=== PATIENT | male | born 1965 | race American Indian/Alaskan Native ===

== ENCOUNTER 2020-02-19 12:49 | Inpatient (IN) | payer OTHER, MEDICARE ==
[2020-02-19 14:44] LABS: Hematocrit 31.1 % (35.5-45.6); Hemoglobin 9.8 gm/dl (11.8-15.2); Mean Corpuscular HGB Conc 32 % (32-34); Platelet Count 310 K/mm3 (140-440); Red Blood Count 4.54 M/mm3 (3.65-5.03); Red Cell Distribution Width 18.2 % (13.2-15.2)
[2020-02-19 14:57] LABS: Mean Corpuscular Volume 69 fl (84-94)
[2020-02-19 15:00] LABS: BUN/Creatinine Ratio 21; Blood Urea Nitrogen 23 mg/dL (9-20); Calcium 9.8 mg/dL (8.4-10.2); Hemolysis Index 3
[2020-02-19] MEDS ORDERED: IPRATROPIUM/ALBUTEROL SULFATE 3 ML AMPUL.NEB IH ONE (15:03)
[2020-02-19] MEDS ORDERED: MAGNESIUM SULFATE 2 GM/50 ML BAG IV ONE (15:04)
[2020-02-19] MEDS ORDERED: methylPREDNISolone Sod Succinate 125 MG/2 ML INJ IV ONE (15:04)
--- NOTE | 2020-02-19 15:05 | XRay Report ---
XR chest routine 2V INDICATION / CLINICAL INFORMATION: History of COPD. Shortness of breath. COMPARISON: 11/21/2016. FINDINGS: SUPPORT DEVICES: None. HEART /PULMONARY VASCULATURE: The heart is prominent. No pulmonary vasculature congestion. LUNGS / PLEURA: No significant pulmonary or pleural abnormality. No pneumothorax. ADDITIONAL FINDINGS: No significant additional findings. IMPRESSION: No acute cardiopulmonary abnormality. Signer Name: Angel Sales MD Signed: 02/19/2020 3:01 PM Workstation Name: [id number]
--- NOTE | 2020-02-19 15:51 | Emergency Department Report ---
ED Shortness of Breath HPI - General Chief Complaint: Dyspnea/Respdistress Stated Complaint: JENISE Time Seen by Provider: 02/19/20 15:45 Source: EMS Mode of arrival: Wheelchair Limitations: No Limitations - History of Present Illness Initial Comments: Patient is 55-year-old male with history of hypertension and COPD. Patient presented to the ER complaining of shortness of breath and difficulty breathing for the last 3 days. Patient stated that he was not taking any medication at home for his shortness of breath. Patient denied any fever or chills. He denied any contact with patient with COVID-19. Patient also denied any chest pain, abdominal pain, nausea or vomiting. MD Complaint: shortness of breath, cough -: days(s) (3) - Related Data Home Medications Medication Instructions Recorded Confirmed Last Taken Dextroamphetamine/Amphetamine 10 mg PO BID 11/24/16 11/24/16 Unknown [Adderall 10 mg Tablet] Folic Acid [Folvite] 1 mg PO DAILY 11/24/16 11/24/16 Unknown NIFEdipine XL [Procardia Xl] 90 mg PO QDAY 11/24/16 11/24/16 Unknown Potassium Chloride 20 meq PO DAILY 11/24/16 11/24/16 Unknown traZODone [Desyrel] 100 mg PO QHS 11/24/16 11/24/16 Unknown Previous Rx's Medication Instructions Recorded Last Taken Type ALPRAZolam [Xanax TAB] 1 mg PO BID #14 tablet 11/29/16 Unknown Rx PARoxetine [Paxil] 10 mg PO DAILY #10 tablet 11/29/16 Unknown Rx oxyCODONE /ACETAMINOPHEN [Percocet 2 tab PO Q6H PRN #14 tablet 11/29/16 Unknown Rx 5/325 mg] Allergies Allergy/AdvReac Type Severity Reaction Status Date / Time No Known Allergies Allergy Verified 11/22/16 01:19 ED Review of Systems ROS: Stated complaint: JENISE Other details as noted in HPI Comment: All other systems reviewed and negative Constitutional: denies: chills, fever Respiratory: cough, orthopnea, shortness of breath, SOB with exertion, SOB at rest, wheezing Cardiovascular: denies: chest pain, palpitations Gastrointestinal: denies: abdominal pain, nausea, vomiting, diarrhea, constipation, hematemesis, hematochezia Musculoskeletal: denies: back pain Neurological: denies: headache, weakness, numbness, paresthesias, confusion ED Past Medical Hx - Past Medical History Hx Hypertension: Yes Hx Deep Vein Thrombosis: Yes Hx Arthritis: Yes (Rheumatoid) Hx COPD: Yes Additional medical history: intestinal blockage, blood clots in legs - Surgical History Additional Surgical History: Colon resection, IVC filter removed - Social History Smoking Status: Current Every Day Smoker Substance Use Type: None - Medications Home Medications: Home Medications Medication Instructions Recorded Confirmed Last Taken Type Dextroamphetamine/Amphetamine 10 mg PO BID 11/24/16 11/24/16 Unknown History [Adderall 10 mg Tablet] Folic Acid [Folvite] 1 mg PO DAILY 11/24/16 11/24/16 Unknown History NIFEdipine XL [Procardia Xl] 90 mg PO QDAY 11/24/16 11/24/16 Unknown History Potassium Chloride 20 meq PO DAILY 11/24/16 11/24/16 Unknown History traZODone [Desyrel] 100 mg PO QHS 11/24/16 11/24/16 Unknown History ALPRAZolam [Xanax TAB] 1 mg PO BID #14 tablet 11/29/16 Unknown Rx PARoxetine [Paxil] 10 mg PO DAILY #10 tablet 11/29/16 Unknown Rx oxyCODONE /ACETAMINOPHEN [Percocet 2 tab PO Q6H PRN #14 tablet 11/29/16 Unknown Rx 5/325 mg] ED Physical Exam - General Limitations: No Limitations General appearance: alert, in no apparent distress - Head Head exam: Present: atraumatic, normocephalic, normal inspection - Eye Eye exam: Present: normal appearance, PERRL - ENT ENT exam: Present: normal exam, normal orophraynx, mucous membranes moist - Neck Neck exam: Present: normal inspection, full ROM. Absent: tenderness, meningismus, lymphadenopathy, thyromegaly - Respiratory Respiratory exam: Present: wheezes, rhonchi. Absent: respiratory distress, rales, accessory muscle use, decreased breath sounds, prolonged expiratory - Cardiovascular Cardiovascular Exam: Present: regular rate, normal rhythm, normal heart sounds - GI/Abdominal GI/Abdominal exam: Present: soft, normal bowel sounds. Absent: distended, tenderness, guarding, rebound, rigid, organomegaly, mass, bruit, pulsatile mass, hernia - Extremities Exam Extremities exam: Present: normal inspection, full ROM, normal capillary refill. Absent: tenderness - Back Exam Back exam: Present: normal inspection, full ROM. Absent: CVA tenderness (R), CVA tenderness (L) - Neurological Exam Neurological exam: Present: alert, oriented X3, CN II-XII intact - Psychiatric Psychiatric exam: Present: normal mood - Skin Skin exam: Present: warm, intact, normal color ED Course Vital Signs 02/19/20 02/19/20 02/19/20 13:07 15:25 17:05 Temperature 97.9 F 99.1 F Pulse Rate 63 78 Pulse Rate [ 98 H Bilateral] Respiratory 18 16 Rate Respiratory 16 Rate [Bilateral ] Blood Pressure 110/74 Blood Pressure 135/96 [Right] O2 Sat by Pulse 100 97 Oximetry ED Medical Decision Making - Lab Data Result diagrams: 02/19/20 14:33 02/19/20 14:33 - EKG Data -: EKG Interpreted by Me EKG shows normal: sinus rhythm Rate: normal - EKG Data Interpretation: no acute changes - Radiology Data Radiology results: report reviewed - Medical Decision Making Patient is 55-year-old male with history of hypertension and COPD. Patient presented to the ER complaining of shortness of breath and difficulty breathing for the last 3 days. Patient stated that he was not taking any medication at h ome for his shortness of breath. Patient denied any fever or chills. He denied any contact with patient with COVID-19. Patient also denied any chest pain, abdominal pain, nausea or vomiting. Patient received albuterol, Atrovent and Solu-Medrol. CT chest showed groundglass appearance concerning for atypical pneumonia. COVID-19 test has been ordered. I discussed the patient with Dr. Luna, he agreed to admit the patient to medical service for further management. Critical care attestation.: If time is entered above; I have spent that time in minutes in the direct care of this critically ill patient, excluding procedure time. ED Disposition Clinical Impression: Suspected 2019-nCoV infection, COPD exacerbation Disposition: OP ADMIT IP TO THIS HOSP Is pt being admited?: Yes Condition: Stable Instructions: Chronic Obstructive Pulmonary Disease (ED)
--- NOTE | 2020-02-19 17:12 | Cat Scan Report ---
CT CHEST WITHOUT CONTRAST INDICATION / CLINICAL INFORMATION: SOB,COUGH, COVID-19. TECHNIQUE: Axial CT images were obtained through the chest without contrast. All CT scans at this location are p erformed using CT dose reduction for ALARA by means of automated exposure control. COMPARISON: Recent chest radiograph dated 02/19/2020. Prior CT abdomen and pelvis dated 11/21/2016. FINDINGS: HEART: No significant abnormality. THORACIC AORTA: Mild atherosclerotic calcification without acute abnormality. MEDIASTINUM and ROXANN: Mild reactive lymphadenopathy noted in the mediastinum. LUNGS: Mild scattered groundglass opacities noted in the bilateral lung bases and inferior aspect of the right upper lobe. PLEURA: No significant pleural effusion. No pneumothorax. ADDITIONAL FINDINGS: None. UPPER ABDOMEN: No acute findings of the upper abdomen. SKELETAL SYSTEM: Multilevel degenerative changes are noted of the spine. Exaggerated kyphosis is note d of the thoracic spine. No aggressive osseous lesions. IMPRESSION: 1. Mild scattered groundglass opacities noted in the bilateral lower lobes and inferior aspect of the right upper lobe with reactive mediastinal lymphadenopathy likely represents a developing atypical v ersus viral infectious process. Signer Name: Marco Antonio Sanchez MD Signed: 02/19/2020 5:07 PM Workstation Name: [id number]
--- NOTE | 2020-02-19 17:49 | History and Physical Report ---
History of Present Illness Chief complaint: I cannot breathe History of present illness: 55 YO Male with OA, HTN, COPD, DVT S/P IVC Filter Placement and subsequent removal not currently taking therapeutic anticoagulation, Nicotine Dependence presents to ED for evaluation. Patient states that he has experienced shortness of breath over the past 3 days with worsening symptoms over the same timeframe. Patient knowledges fatigue, malaise, subjective fever, decreased exercise tolerance, dry cough. EMS was notified and upon arrival the patient was found to be in distress and subsequently transported to [facility] for further care and evaluation of the aforementioned symptoms. Patient seen and evaluated in the emergency department. All lab and imaging studies reviewed. Patient found to have a pulse oximetry of 87% on room air with exertion which is consistent with acute hypoxemic respiratory failure. The patient underwent chest x-ray which revealed bilateral pneumonia. Patient admitted to medical floor and initiated on pneumonia protocol as well as coronavirus protocol. Patient placed on supplemental oxygen with improvement in pulse oximetry. Patient denies chills, chest pain, palpitations, skin rash, recent ill contacts, or known exposure to COVID-19. Prior admission on 11/24/2016 reviewed. All medication listed at time of admission has been reconciled. Past History Past Medical History: arthritis, COPD, DVT, hypertension, other (See HPI) Past Surgical History: bowel surgery, Other (IVC filter placement and removal) Social history: , smoking. denies: alcohol abuse, prescription drug abuse Family history: hypertension Medications and Allergies Allergies Allergy/AdvReac Type Severity Reaction Status Date / Time No Known Allergies Allergy Verified 11/22/16 01:19 Home Medications Medication Instructions Recorded Confirmed Last Taken Type Dextroamphetamine/Amphetamine 10 mg PO BID 11/24/16 11/24/16 Unknown History [Adderall 10 mg Tablet] Folic Acid [Folvite] 1 mg PO DAILY 11/24/16 11/24/16 Unknown History NIFEdipine XL [Procardia Xl] 90 mg PO QDAY 11/24/16 11/24/16 Unknown History Potassium Chloride 20 meq PO DAILY 11/24/16 11/24/16 Unknown History traZODone [Desyrel] 100 mg PO QHS 11/24/16 11/24/16 Unknown History ALPRAZolam [Xanax TAB] 1 mg PO BID #14 tablet 11/29/16 Unknown Rx PARoxetine [Paxil] 10 mg PO DAILY #10 tablet 11/29/16 Unknown Rx oxyCODONE /ACETAMINOPHEN [Percocet 2 tab PO Q6H PRN #14 tablet 11/29/16 Unknown Rx 5/325 mg] Review of Systems Constitutional: fever, fatigue, weakness, malaise Ears, nose, mouth and throat: ear pain, ear discharge, tinnitis, decreased hearing, nose pain Cardiovascular: chest pain, orthopnea, palpitations, rapid/irregular heart beat Respiratory: cough, shortness of breath, no excessive sputum, no wheezing, no pain Gastrointestinal: no nausea, no vomiting, no diarrhea, no constipation Genitourinary Male: no hematuria, no flank pain, no discharge, no urinary frequency, no urinary hesitancy Rectal: no pain, no incontinence, no bleeding Musculoskeletal: no neck stiffness, no neck pain, no arm numbness/tingling Integumentary: no rash, no pruritis, no redness, no sores, no wounds Neurological: no paralysis, no weakness, no parathesias, no numbness, no tingling Psychiatric: no anxiety, no memory loss, no sleep disturbances, no insomnia, no change in appetite Endocrine: no cold intolerance, no heat intolerance, no excessive thirst, no polydipsia, no polyuria, no excessive sweating Hematologic/Lymphatic: no easy bruising, no easy bleeding, no lymphedema Allergic/Immunologic: no urticaria, no allergic rhinitis, no anaphylaxis Exam - Constitutional Vitals: Temp Pulse Resp BP Pulse Ox 99.1 F 78 16 135/96 97 02/19/20 17:05 02/19/20 17:05 02/19/20 17:05 02/19/20 17:05 02/19/20 17:05 General appearance: Present: mild distress - EENT Eyes: Present: PERRL ENT: hearing intact, clear oral mucosa - Neck Neck: Present: supple, normal ROM - Respiratory Respiratory effort: labored, accessory muscle use Respiratory: bilateral: diminished - Cardiovascular Heart Sounds: Present: S1 & S2. Absent: rub, click - Extremities Extremities: pulses symmetrical, No edema Peripheral Pulses: within normal limits - Abdominal General gastrointestinal: Present: soft, non-tender, non-distended, normal bowel sounds Male genitourinary: Present: normal - Integumentary Integumentary: Present: clear, warm, dry - Musculoskeletal Musculoskeletal: gait normal, strength equal bilaterally - Psychiatric Psychiatric: appropriate mood/affect, intact judgment & insight - Neurologic Neurologic: CNII-XII intact, moves all extremities Results - Labs CBC & Chem 7: 02/19/20 14:33 02/19/20 18:00 Labs: Abnormal lab results 02/19/20 02/19/20 02/19/20 Range/Units 14:33 14:33 15:51 Hgb 9.8 L (11.8-15.2) gm/dl Hct 31.1 L (35.5-45.6) % MCV 69 L (84-94) fl MCH 22 L (28-32) pg RDW 18.2 H (13.2-15.2) % BUN 23 H (9-20) mg/dL NT-Pro-B Natriuret Pep 1162 H (0-900) pg/mL Assessment and Plan - Patient Problems (1) Acute hypoxemic respiratory failure Current Visit: Yes Status: Acute Plan to address problem: Supplemental oxygen, chest x-ray, nebulizer therapy, pulse oximetry, noninvasive positive pressure ventilation as clinically indicated, pulmonary toilet, prone positioning while in bed (2) Pneumonia Current Visit: Yes Status: Acute Plan to address problem: Pneumonia protocol: Chest x-ray, CBC, CMP, IV antibiotic therapy, nebulizer therapy, supplemental oxygen, blood culture. (3) Suspected 2019-nCoV infection Current Visit: Yes Status: Acute Plan to address problem: Coronavirus protocol: Contact precautions, isolation precautions, coronavirus PCR ordered and pending at time of admission, IV antibiotic therapy, IV steroid therapy, supplemental oxygen, pulse oximetry, pulmonary toilet. (4) COPD (chronic obstructive pulmonary disease) Current Visit: Yes Status: Acute Qualifiers: Chronic bronchitis type: unspecified Plan to address problem: Supplemental oxygen, steroid therapy, supportive care. (5) Nicotine dependence Current Visit: Yes Status: Acute Qualifiers: Nicotine product type: cigarettes Substance use status: in withdrawal Qualified Code(s): F17.213 - Nicotine dependence, cigarettes, with withdrawal Plan to address problem: Smoking cessation counseling, supportive care, behavior change counseling, +15 minutes. (6) DVT prophylaxis Current Visit: Yes Status: Acute Plan to address problem: SCD to bilateral lower extremities while in bed, prophylactic anticoagulation.
[2020-02-19] MEDS ORDERED: ONDANSETRON 4 MG/2 ML INJ IV PRN (17:55)
[2020-02-19] MEDS ORDERED: AZITHROMYCIN 500 MG in SODIUM CHLORIDE 0.9% 250ML 250 ML IV SCH (21:00)
[2020-02-19] MEDS: cefTRIAXone/NS 2 GM/100 ML 2 GM/100 ML BAG IV SCH (21:59)
[2020-02-19] MEDS ORDERED: DEXTROAMPHETAMINE PO SCH (22:00)
[2020-02-19] MEDS ORDERED: AMPHETAMINE PO SCH (22:00)
[2020-02-19] MEDS: ALBUTEROL 2.5 MG/3 ML NEBU IH PRN (22:09)
[2020-02-19] MEDS: HEPARIN 5,000 UNIT/1 ML VIAL SUB-Q SCH (22:40)
[2020-02-19] MEDS: ACETAMINOPHEN 325 MG TAB PO PRN (23:00)
[2020-02-19] MEDS: traZODone 100 MG TAB PO SCH (23:00)
[2020-02-19] MEDS: ALPRAZolam 1 MG TAB PO SCH (23:00)
[2020-02-19] MEDS: methylPREDNISolone Sod Succinate 40 MG/1 ML INJ IV SCH (23:00)
[2020-02-20] MEDS: ALBUTEROL 2.5 MG/3 ML NEBU IH PRN (04:14)
[2020-02-20] MEDS: oxyCODONE /ACETAMINOPHEN 5-325MG TAB PO PRN ×2 (04:33→13:47)
[2020-02-20] MEDS: methylPREDNISolone Sod Succinate 40 MG/1 ML INJ IV SCH ×3 (05:06→22:32)
[2020-02-20 06:41] LABS: Hematocrit 32.3 % (35.5-45.6); Hemoglobin 10.1 gm/dl (11.8-15.2); Mean Corpuscular HGB Conc 31 % (32-34); Mean Corpuscular Volume 70 fl (84-94); Platelet Count 295 K/mm3 (140-440); Red Blood Count 4.61 M/mm3 (3.65-5.03); Red Cell Distribution Width 18.4 % (13.2-15.2)
[2020-02-20 06:57] LABS: BUN/Creatinine Ratio 21; Blood Urea Nitrogen 23 mg/dL (9-20); Calcium 9.5 mg/dL (8.4-10.2); Hemolysis Index 8
--- NOTE | 2020-02-20 07:37 | Progress Note ---
Assessment and Plan Assessment and plan: (1) Acute hypoxemic respiratory failure Current Visit: Yes Status: Acute Plan to address problem: Supplemental oxygen, chest x-ray, nebulizer therapy, pulse oximetry, noninvasive positive pressure ventilation as clinically indicated, pulmonary toilet, prone positioning while in bed Echo is ordered and pending (2) Pneumonia Current Visit: Yes Status: Acute Plan to address problem: Pneumonia protocol: Chest x-ray, CBC, CMP, IV antibiotic therapy, nebulizer therapy, supplemental oxygen, blood culture. (3) Suspected 2019-nCoV infection Current Visit: Yes Status: Acute Plan to address problem: Coronavirus protocol: Contact precautions, isolation precautions, coronavirus PCR ordered and pending at time of admission, IV antibiotic therapy, IV steroid therapy, supplemental oxygen, pulse oximetry, pulmonary toilet. (4) COPD (chronic obstructive pulmonary disease) Current Visit: Yes Status: Acute Qualifiers: Chronic bronchitis type: unspecified Plan to address problem: Supplemental oxygen, steroid therapy, supportive care. (5) Nicotine dependence Current Visit: Yes Status: Acute Qualifiers: Nicotine product type: cigarettes Substance use status: in withdrawal Qualified Code(s): F17.213 - Nicotine dependence, cigarettes, with withdrawal Plan to address problem: Smoking cessation counseling, supportive care, behavior change counseling, +15 minutes. Hyperkalemia -Renal function is okay -I put the patient on Kayexalate, will monitor BMP (6) DVT prophylaxis Current Visit: Yes Status: Acute Plan to address problem: SCD to bilateral lower extremities while in bed, prophylactic anticoagulation. Patient was complaining a lot of cough and is on given Robitussin syrup. Patient is complaining generalized pain and he used to take methadone resumed it. History Interval history: Patient was seen and evaluated this morning Patient is coughing a lot, complains generalized pain Hospitalist Physical - Physical exam Narrative exam: Patient is on 2 L of oxygen The patient appeared well nourished and normally developed. Vital signs as documented. Head exam is unremarkable. No scleral icterus . Neck is without jugular venous distension, thyromegaly, or carotid bruits. Lungs are clear to auscultation. Cardiac exam reveals regular rate and Rhythm. Abdominal exam reveals normal bowel sounds, nontender, no organomegaly. Extremities are nonedematous and both femoral and pedal pulses are normal. [employer]: Alert and oriented 3. No focal weakness. - Constitutional Vitals: Temp Pulse Resp BP Pulse Ox 97.8 F 87 18 143/99 97 02/20/20 05:52 02/20/20 05:52 02/20/20 05:52 02/20/20 05:52 02/20/20 05:52 General appearance: Present: mild distress Results - Labs CBC & Chem 7: 02/20/20 04:57 02/20/20 04:57 Labs: Laboratory Last Values WBC 6.5 K/mm3 (4.5-11.0) 02/20/20 04:57 RBC 4.61 M/mm3 (3.65-5.03) 02/20/20 04:57 Hgb 10.1 gm/dl (11.8-15.2) L 02/20/20 04:57 Hct 32.3 % (35.5-45.6) L 02/20/20 04:57 MCV 70 fl (84-94) L 02/20/20 04:57 MCH 22 pg (28-32) L 02/20/20 04:57 MCHC 31 % (32-34) L 02/20/20 04:57 RDW 18.4 % (13.2-15.2) H 02/20/20 04:57 Plt Count 295 K/mm3 (140-440) 02/20/20 04:57 Seg Neutrophils % Client Onboarding Analyst 02/20/20 04:57 D-Dimer 317.92 ng/mlDDU (0-234) H 02/19/20 18:00 Sodium 136 mmol/L (137-145) L 02/20/20 04:57 Potassium 5.2 mmol/L (3.6-5.0) H 02/20/20 04:57 Chloride 102.9 mmol/L (98-107) 02/20/20 04:57 Carbon Dioxide 22 mmol/L (22-30) 02/20/20 04:57 Anion Gap 16 mmol/L 02/20/20 04:57 BUN 23 mg/dL (9-20) H 02/20/20 04:57 Creatinine 1.1 mg/dL (0.8-1.3) 02/20/20 04:57 Estimated GFR > 60 ml/min 02/20/20 04:57 BUN/Creatinine Ratio 21 % 02/20/20 04:57 Glucose 139 mg/dL (75-100) H 02/20/20 04:57 Calcium 9.5 mg/dL (8.4-10.2) 02/20/20 04:57 Ferritin 23.7 ng/mL (30.0-300.0) L 02/19/20 17:59 Lactate Dehydrogenase 194 units/L (91-180) H 02/19/20 18:00 C-Reactive Protein 3.00 mg/dL (0.00-1.30) H 02/19/20 18:00 NT-Pro-B Natriuret Pep 1162 pg/mL (0-900) H 02/19/20 15:51 Cheng/IV: Voiding Method Toilet IV Catheter Type [Left Forearm INT / Saline Lock ] Active Medications - Current Medications Current Medications: Generic Name Dose Route Start Last Admin Trade Name Freq PRN Reason Stop Dose Admin Acetaminophen 650 mg 02/19/20 17:55 02/19/20 23:00 Tylenol PO 650 mg Q4H PRN Administration Pain MILD(1-3)/Fever >100.5/PEREZ Albuterol 2.5 mg 02/19/20 17:55 02/20/20 04:14 Proventil IH 2.5 mg Q4HRT PRN Administration Shortness Of Breath Albuterol/Ipratropium 1 ampul 02/20/20 08:00 Duoneb *Not For Prn Use* IH TIDRT [facility] Alprazolam 1 mg 02/19/20 22:00 02/19/20 23:00 Xanax PO 1 mg BID ALEXANDRA Administration Azithromycin 500 mg 02/20/20 10:00 Zithromax PO 02/22/20 10:01 QDAY [facility] Folic Acid 1 mg 02/20/20 10:00 Folvite PO DAILY [facility] Heparin Sodium (Porcine) 5,000 unit 02/19/20 22:00 02/19/20 22:40 Heparin SUB-Q 5,000 unit Q12HR ALEXANDRA Administration Ceftriaxone Sodium 2 gm in 100 mls @ 200 mls/hr 02/19/20 20:00 02/19/20 21:59 Rocephin/Ns 2 Gm/100 Ml IV 02/22/20 19:59 200 mls/hr Q24HR ALEXANDRA Administration Protocol Methylprednisolone Sodium Succinate 40 mg 02/19/20 22:00 02/20/20 05:06 Solu-Medrol IV 40 mg Q8HR ALEXANDRA Administration Miscellaneous Medication 10 mg 02/19/20 22:00 Dextroamphetamine/Amphetamine [Adderall 10 Mg Tablet] PO BID [facility] Nifedipine 90 mg 02/20/20 10:00 Procardia Xl PO QDAY ALEXANDRA Ondansetron HCl 4 mg 02/19/20 17:55 Zofran IV Q8H PRN Nausea And Vomiting Oxycodone/Acetaminophen 2 tab 02/19/20 17:58 02/20/20 04:33 Percocet 5/325 PO 2 tab Q6H PRN Administration Pain, Moderate (4-6) Paroxetine HCl 10 mg 02/20/20 10:00 Paxil PO DAILY ALEXANDRA Sodium Chloride 10 ml 02/19/20 22:00 02/19/20 23:01 Sodium Chloride Flush Syringe 10 Ml IV 10 ml BID ALEXANDRA Administration Sodium Chloride 10 ml 02/19/20 17:55 02/20/20 05:07 Sodium Chloride Flush Syringe 10 Ml IV 10 ml PRN PRN Administration LINE FLUSH Sodium Polystyrene Sulfonate 30 gm 02/20/20 07:34 Kionex PO 02/20/20 07:35 ONCE ONE Trazodone HCl 100 mg 02/19/20 22:00 02/19/20 23:00 Desyrel PO 100 mg QHS ALEXANDRA Administration
[2020-02-20] MEDS: IPRATROPIUM/ALBUTEROL SULFATE 3 ML AMPUL.NEB IH SCH ×3 (07:59→19:26)
[2020-02-20] MEDS ORDERED: SODIUM POLYSTYRENE 15 GM/60 ML ORAL LIQD PO NR (08:00)
[2020-02-20] MEDS: ACETAMINOPHEN 325 MG TAB PO PRN (08:26)
[2020-02-20 08:50] LABS: Basophils % (Manual) 0 % (0.0-1.8); Eosinophils % (Manual) 0 % (0.0-4.3); Hypochromasia 1+; Monocytes % (Manual) 0 % (0.0-7.3); Total Cells Counted 100
[2020-02-20 08:51] LABS: Poikilocytosis Few; Schistocytes Few; Spherocytes Few
[2020-02-20 08:52] LABS: Platelet Estimate Consistent w Auto
[2020-02-20] MEDS: FOLIC ACID 1 MG TAB PO SCH (09:19)
[2020-02-20] MEDS: cefTRIAXone/NS 2 GM/100 ML 2 GM/100 ML BAG IV SCH (09:19)
[2020-02-20] MEDS: NIFEdipine XL 90 MG TAB PO SCH (09:20)
[2020-02-20] MEDS: HEPARIN 5,000 UNIT/1 ML VIAL SUB-Q SCH ×2 (09:20→22:32)
[2020-02-20] MEDS: ALPRAZolam 1 MG TAB PO SCH ×2 (09:20→22:32)
[2020-02-20] MEDS ORDERED: POTASSIUM CHLORIDE 20 MEQ PACKET PO SCH (10:00)
[2020-02-20] MEDS ORDERED: AZITHROMYCIN 250 MG TAB PO SCH (10:00)
[2020-02-20] MEDS: METHADONE 5 MG TAB PO SCH ×2 (11:49→17:17)
[2020-02-20] MEDS: guaiFENesin DM 200/20 MG ORAL LIQD 10 ML PO PRN ×2 (13:27→13:47)
[2020-02-20] MEDS: PARoxetine 10 MG TAB PO SCH (14:11)
[2020-02-20] MEDS: traZODone 100 MG TAB PO SCH (22:32)
[2020-02-21] MEDS: METHADONE 5 MG TAB PO SCH ×3 (01:38→17:51)
[2020-02-21] MEDS: ALBUTEROL 2.5 MG/3 ML NEBU IH PRN (04:34)
[2020-02-21 06:38] LABS: BUN/Creatinine Ratio 23; Blood Urea Nitrogen 21 mg/dL (9-20); Calcium 9.2 mg/dL (8.4-10.2); Hemolysis Index 0
[2020-02-21] MEDS: methylPREDNISolone Sod Succinate 40 MG/1 ML INJ IV SCH ×3 (07:19→22:00)
[2020-02-21] MEDS: oxyCODONE /ACETAMINOPHEN 5-325MG TAB PO PRN ×3 (07:20→22:01)
--- NOTE | 2020-02-21 07:54 | Progress Note ---
Assessment and Plan Assessment and plan: (1) Acute hypoxemic respiratory failure Current Visit: Yes Status: Acute Plan to address problem: Supplemental oxygen, chest x-ray, nebulizer therapy, pulse oximetry, noninvasive positive pressure ventilation as clinically indicated, pulmonary toilet Echo is ordered and pending (2) Pneumonia Current Visit: Yes Status: Acute Plan to address problem: Pneumonia protocol: Chest x-ray, CBC, CMP, IV antibiotic therapy, nebulizer therapy, supplemental oxygen, blood culture. (3) Suspected 2019-nCoV infection Current Visit: Yes Status: Acute Plan to address problem: Coronavirus protocol: Contact precautions, isolation precautions, coronavirus PCR ordered and pending at time of admission, IV antibiotic therapy, IV steroid therapy, supplemental oxygen, pulse oximetry, pulmonary toilet. (4) COPD (chronic obstructive pulmonary disease) Current Visit: Yes Status: Acute Qualifiers: Chronic bronchitis type: unspecified Plan to address problem: Supplemental oxygen, steroid therapy, supportive care. (5) Nicotine dependence Current Visit: Yes Status: Acute Qualifiers: Nicotine product type: cigarettes Substance use status: in withdrawal Qualified Code(s): F17.213 - Nicotine dependence, cigarettes, with withdrawal Plan to address problem: Smoking cessation counseling, supportive care, behavior change counseling, +15 minutes. Hyperkalemia -Renal function is okay -I put the patient on Kayexalate, will monitor BMP (6) DVT prophylaxis Current Visit: Yes Status: Acute Plan to address problem: SCD to bilateral lower extremities while in bed, prophylactic anticoagulation. Patient was complaining a lot of cough and is on given Robitussin syrup. Patient is complaining generalized pain and he used to take methadone resumed it. 02/21/2020 -Covid test was positive yesterday, patient is on dexamethasone -Procalcitonin level is negative and I will discontinue the IV antibiotic -Continue with oxygen supplement History Interval history: Patient was seen and evaluated this morning Patient is coughing a lot, complains generalized pain Hospitalist Physical - Physical exam Narrative exam: Patient is on 2 L of oxygen The patient appeared well nourished and normally developed. Vital signs as documented. Head exam is unremarkable. No scleral icterus . Neck is without jugular venous distension, thyromegaly, or carotid bruits. Lungs are clear to auscultation. Cardiac exam reveals regular rate and Rhythm. Abdominal exam reveals normal bowel sounds, nontender, no organomegaly. Extremities are nonedematous and both femoral and pedal pulses are normal. 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 No focal weakness. - Constitutional Vitals: Temp Pulse Resp BP Pulse Ox 98.4 F 82 18 138/85 96 02/21/20 05:12 02/21/20 05:12 02/21/20 05:12 02/21/20 05:12 02/21/20 05:12 General appearance: Present: mild distress Results - Labs CBC & Chem 7: 02/20/20 04:57 02/21/20 05:41 Labs: Laboratory Last Values WBC 6.5 K/mm3 (4.5-11.0) 02/20/20 04:57 RBC 4.61 M/mm3 (3.65-5.03) 02/20/20 04:57 Hgb 10.1 gm/dl (11.8-15.2) L 02/20/20 04:57 Hct 32.3 % (35.5-45.6) L 02/20/20 04:57 MCV 70 fl (84-94) L 02/20/20 04:57 MCH 22 pg (28-32) L 02/20/20 04:57 MCHC 31 % (32-34) L 02/20/20 04:57 RDW 18.4 % (13.2-15.2) H 02/20/20 04:57 Plt Count 295 K/mm3 (140-440) 02/20/20 04:57 Add Manual Diff Complete 02/20/20 04:57 Total Counted 100 02/20/20 04:57 Seg Neutrophils % Process Analyst 02/20/20 04:57 Seg Neuts % (Manual) 96.0 % (40.0-70.0) H 02/20/20 04:57 Band Neutrophils % 0 % 02/20/20 04:57 Lymphocytes % (Manual) 4.0 % (13.4-35.0) L 02/20/20 04:57 Reactive Lymphs % (Man) 0 % 02/20/20 04:57 Monocytes % (Manual) 0 % (0.0-7.3) 02/20/20 04:57 Eosinophils % (Manual) 0 % (0.0-4.3) 02/20/20 04:57 Basophils % (Manual) 0 % (0.0-1.8) 02/20/20 04:57 Metamyelocytes % 0 % 02/20/20 04:57 Myelocytes % 0 % 02/20/20 04:57 Promyelocytes % 0 % 02/20/20 04:57 Blast Cells % 0 % 02/20/20 04:57 Nucleated RBC % Not Reportable 02/20/20 04:57 Seg Neutrophils # Man 6.2 K/mm3 (1.8-7.7) 02/20/20 04:57 Band Neutrophils # 0.0 K/mm3 02/20/20 04:57 Lymphocytes # (Manual) 0.3 K/mm3 (1.2-5.4) L 02/20/20 04:57 Abs React Lymphs (Man) 0.0 K/mm3 02/20/20 04:57 Monocytes # (Manual) 0.0 K/mm3 (0.0-0.8) 02/20/20 04:57 Eosinophils # (Manual) 0.0 K/mm3 (0.0-0.4) 02/20/20 04:57 Basophils # (Manual) 0.0 K/mm3 (0.0-0.1) 02/20/20 04:57 Metamyelocytes # 0.0 K/mm3 02/20/20 04:57 Myelocytes # 0.0 K/mm3 02/20/20 04:57 Promyelocytes # 0.0 K/mm3 02/20/20 04:57 Blast Cells # 0.0 K/mm3 02/20/20 04:57 WBC Morphology Not Reportable 02/20/20 04:57 Hypersegmented Neuts Not Reportable 02/20/20 04:57 Hyposegmented Neuts Not Reportable 02/20/20 04:57 Hypogranular Neuts Not Reportable 02/20/20 04:57 Smudge Cells Not Reportable 02/20/20 04:57 Toxic Granulation Not Reportable 02/20/20 04:57 Toxic Vacuolation Not Reportable 02/20/20 04:57 Dohle Bodies Not Reportable 02/20/20 04:57 Pelger-Huet Anomaly Not Reportable 02/20/20 04:57 Reshma Rods Not Reportable 02/20/20 04:57 Platelet Estimate Consistent w auto 02/20/20 04:57 Clumped Platelets Not Reportable 02/20/20 04:57 Plt Clumps, EDTA Not Reportable 02/20/20 04:57 Large Platelets Not Reportable 02/20/20 04:57 Giant Platelets Not Reportable 02/20/20 04:57 Platelet Satelliting Not Reportable 02/20/20 04:57 Plt Morphology Comment Not Reportable 02/20/20 04:57 RBC Morphology Not Reportable 02/20/20 04:57 Dimorphic RBCs Not Reportable 02/20/20 04:57 Polychromasia Not Reportable 02/20/20 04:57 Hypochromasia 1+ 02/20/20 04:57 Poikilocytosis Few 02/20/20 04:57 Anisocytosis Not Reportable 02/20/20 04:57 Microcytosis Not Reportable 02/20/20 04:57 Macrocytosis Not Reportable 02/20/20 04:57 Spherocytes Few 02/20/20 04:57 Pappenheimer Bodies Not Reportable 02/20/20 04:57 Sickle Cells Not Reportable 02/20/20 04:57 Target Cells Not Reportable 02/20/20 04:57 Tear Drop Cells Not Reportable 02/20/20 04:57 Ovalocytes Not Reportable 02/20/20 04:57 Helmet Cells Not Reportable 02/20/20 04:57 Pfeiffer-[place] Bodies Not Reportable 02/20/20 04:57 [place] Rings Not Reportable 02/20/20 04:57 Christa Cells Not Reportable 02/20/20 04:57 Bite Cells Not Reportable 02/20/20 04:57 Crenated Cell Not Reportable 02/20/20 04:57 Elliptocytes Few 02/20/20 04:57 Acanthocytes (Spur) Not Reportable 02/20/20 04:57 Rouleaux Not Reportable 02/20/20 04:57 Hemoglobin C Crystals Not Reportable 02/20/20 04:57 Schistocytes Few 02/20/20 04:57 Malaria parasites Not Reportable 02/20/20 04:57 Ricky Bodies Not Reportable 02/20/20 04:57 Hem Pathologist Commnt No 02/20/20 04:57 D-Dimer 317.92 ng/mlDDU (0-234) H 02/19/20 18:00 Sodium 138 mmol/L (137-145) 02/21/20 05:41 Potassium 4.6 mmol/L (3.6-5.0) 02/21/20 05:41 Chloride 103.6 mmol/L (98-107) 02/21/20 05:41 Carbon Dioxide 26 mmol/L (22-30) 02/21/20 05:41 Anion Gap 13 mmol/L 02/21/20 05:41 BUN 21 mg/dL (9-20) H 02/21/20 05:41 Creatinine 0.9 mg/dL (0.8-1.3) 02/21/20 05:41 Estimated GFR > 60 ml/min 02/21/20 05:41 BUN/Creatinine Ratio 23 % 02/21/20 05:41 Glucose 136 mg/dL (75-100) H 02/21/20 05:41 Calcium 9.2 mg/dL (8.4-10.2) 02/21/20 05:41 Ferritin 23.7 ng/mL (30.0-300.0) L 02/19/20 17:59 Lactate Dehydrogenase 194 units/L (91-180) H 02/19/20 18:00 C-Reactive Protein 3.00 mg/dL (0.00-1.30) H 02/19/20 18:00 NT-Pro-B Natriuret Pep 1162 pg/mL (0-900) H 02/19/20 15:51 Procalcitonin < 0.05 ng/mL (<0.15) 02/19/20 18:00 Coronavirus (PCR) Positive (Negative) A 02/20/20 10:27 Cheng/IV: Voiding Method Toilet IV Catheter Type [Left Forearm INT / Saline Lock ] Active Medications - Current Medications Current Medications: Generic Name Dose Route Start Last Admin Trade Name Freq PRN Reason Stop Dose Admin Acetaminophen 650 mg 02/19/20 17:55 02/20/20 08:26 Tylenol PO 650 mg Q4H PRN Administration Pain MILD(1-3)/Fever >100.5/PEREZ Albuterol 2.5 mg 02/19/20 17:55 02/21/20 04:34 Proventil IH 2.5 mg Q4HRT PRN Administration Shortness Of Breath Albuterol/Ipratropium 1 ampul 02/20/20 08:00 02/20/20 19:26 Duoneb *Not For Prn Use* IH 1 ampul TIDRT ALEXANDRA Administration Alprazolam 1 mg 02/19/20 22:00 02/20/20 22:32 Xanax PO 1 mg BID ALEXANDRA Administration Azithromycin 500 mg 02/20/20 10:00 02/20/20 09:19 Zithromax PO 02/22/20 10:01 500 mg QDAY ALEXANDRA Administration Folic Acid 1 mg 02/20/20 10:00 02/20/20 09:19 Folvite PO 1 mg DAILY ALEXANDRA Administration Guaifenesin 20 ml 02/20/20 09:15 02/20/20 13:47 Guaifenesin Dm Syrup PO 20 ml Q4H PRN Administration Cough Heparin Sodium (Porcine) 5,000 unit 02/19/20 22:00 02/20/20 22:32 Heparin SUB-Q 5,000 unit Q12HR ALEXANDRA Administration Ceftriaxone Sodium 2 gm in 100 mls @ 200 mls/hr 02/19/20 20:00 02/20/20 09:19 Rocephin/Ns 2 Gm/100 Ml IV 02/22/20 19:59 200 mls/hr Q24HR ALEXANDRA Administration Protocol Methadone HCl 20 mg 02/20/20 10:00 02/21/20 01:38 Dolophine PO 20 mg Q8H ALEXANDRA Administration Methylprednisolone Sodium Succinate 40 mg 02/19/20 22:00 02/21/20 07:19 Solu-Medrol IV 40 mg Q8HR ALEXANDRA Administration Miscellaneous Medication 10 mg 02/19/20 22:00 Dextroamphetamine/Amphetamine [Adderall 10 Mg Tablet] PO BID ALEXANDRA Nifedipine 90 mg 02/20/20 10:00 02/20/20 09:20 Procardia Xl PO 90 mg QDAY ALEXANDRA Administration Ondansetron HCl 4 mg 02/19/20 17:55 Zofran IV Q8H PRN Nausea And Vomiting Oxycodone/Acetaminophen 2 tab 02/19/20 17:58 02/21/20 07:20 Percocet 5/325 PO 2 tab Q6H PRN Administration Pain, Moderate (4-6) Paroxetine HCl 10 mg 02/20/20 10:00 02/20/20 14:11 Paxil PO 10 mg DAILY ALEXANDRA Administration Sodium Chloride 10 ml 02/19/20 22:00 02/20/20 22:32 Sodium Chloride Flush Syringe 10 Ml IV 10 ml BID ALEXANDRA Administration Sodium Chloride 10 ml 02/19/20 17:55 02/21/20 07:21 Sodium Chloride Flush Syringe 10 Ml IV 10 ml PRN PRN Administration LINE FLUSH Trazodone HCl 100 mg 02/19/20 22:00 02/20/20 22:32 Desyrel PO 100 mg QHS ALEXANDRA Administration
[2020-02-21] MEDS: IPRATROPIUM/ALBUTEROL SULFATE 3 ML AMPUL.NEB IH SCH ×3 (09:05→19:24)
[2020-02-21] MEDS: PARoxetine 10 MG TAB PO SCH (09:52)
[2020-02-21] MEDS: FOLIC ACID 1 MG TAB PO SCH (09:52)
[2020-02-21] MEDS: HEPARIN 5,000 UNIT/1 ML VIAL SUB-Q SCH ×2 (09:52→22:01)
[2020-02-21] MEDS: NIFEdipine XL 90 MG TAB PO SCH (09:52)
[2020-02-21] MEDS: ALPRAZolam 1 MG TAB PO SCH ×2 (09:52→22:00)
[2020-02-21] MEDS: guaiFENesin DM 200/20 MG ORAL LIQD 10 ML PO PRN ×2 (13:15→17:51)
[2020-02-21] MEDS: MAGIC MOUTHWASH 30ML PO SCH ×2 (14:04→22:04)
[2020-02-21] MEDS: traZODone 100 MG TAB PO SCH (22:01)
[2020-02-22] MEDS: METHADONE 5 MG TAB PO SCH ×3 (01:37→18:21)
[2020-02-22] MEDS: methylPREDNISolone Sod Succinate 40 MG/1 ML INJ IV SCH ×3 (05:38→21:25)
[2020-02-22] MEDS: IPRATROPIUM/ALBUTEROL SULFATE 3 ML AMPUL.NEB IH SCH ×4 (07:45→19:11)
--- NOTE | 2020-02-22 08:36 | Progress Note ---
Assessment and Plan Assessment and plan: (1) Acute hypoxemic respiratory failure Current Visit: Yes Status: Acute Plan to address problem: Supplemental oxygen, chest x-ray, nebulizer therapy, pulse oximetry, noninvasive positive pressure ventilation as clinically indicated, pulmonary toilet Echo is ordered and pending (2) Pneumonia Current Visit: Yes Status: Acute Plan to address problem: Pneumonia protocol: Chest x-ray, CBC, CMP, IV antibiotic therapy, nebulizer therapy, supplemental oxygen, blood culture. (3) Suspected 2019-nCoV infection Current Visit: Yes Status: Acute Plan to address problem: Coronavirus protocol: Contact precautions, isolation precautions, coronavirus PCR ordered and pending at time of admission, IV antibiotic therapy, IV steroid therapy, supplemental oxygen, pulse oximetry, pulmonary toilet. (4) COPD (chronic obstructive pulmonary disease) Current Visit: Yes Status: Acute Qualifiers: Chronic bronchitis type: unspecified Plan to address problem: Supplemental oxygen, steroid therapy, supportive care. (5) Nicotine dependence Current Visit: Yes Status: Acute Qualifiers: Nicotine product type: cigarettes Substance use status: in withdrawal Qualified Code(s): F17.213 - Nicotine dependence, cigarettes, with withdrawal Plan to address problem: Smoking cessation counseling, supportive care, behavior change counseling, +15 minutes. Hyperkalemia -Renal function is okay -I put the patient on Kayexalate, will monitor BMP (6) DVT prophylaxis Current Visit: Yes Status: Acute Plan to address problem: SCD to bilateral lower extremities while in bed, prophylactic anticoagulation. Patient was complaining a lot of cough and is on given Robitussin syrup. Patient is complaining generalized pain and he used to take methadone resumed it. 02/21/2020 -Covid test was positive yesterday, patient is on dexamethasone -Procalcitonin level is negative and I will discontinue the IV antibiotic -Continue with oxygen supplement 02/22/2020 -Patient has Covid and is on dexamethasone -IV antibiotics discontinued because of low procalcitonin level -Patient is still requiring oxygen -Patient has elevated BNP and shortness of breath so we ordered echo but was not done. Give him a dose of IV Lasix. Disposition; can come discharged once echo is obtained. Need home O2 evaluation. History Interval history: Patient was seen and evaluated this morning Patient has some shortness of breath and on 2L of oxygen Hospitalist Physical - Physical exam Narrative exam: Patient is on 2 L of oxygen The patient appeared well nourished and normally developed. Vital signs as documented. Head exam is unremarkable. No scleral icterus . Neck is without jugular venous distension, thyromegaly, or carotid bruits. Lungs are clear to auscultation. Cardiac exam reveals regular rate and Rhythm. Abdominal exam reveals normal bowel sounds, nontender, no organomegaly. Extremities are nonedematous and both femoral and pedal pulses are normal. 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 No focal weakness. - Constitutional Vitals: Temp Pulse Resp BP Pulse Ox 97.9 F 69 20 136/93 92 02/22/20 06:32 02/22/20 06:32 02/22/20 06:32 02/22/20 06:32 02/22/20 06:32 General appearance: Present: mild distress Results - Labs CBC & Chem 7: 02/20/20 04:57 02/21/20 05:41 Labs: Laboratory Last Values WBC 6.5 K/mm3 (4.5-11.0) 02/20/20 04:57 RBC 4.61 M/mm3 (3.65-5.03) 02/20/20 04:57 Hgb 10.1 gm/dl (11.8-15.2) L 02/20/20 04:57 Hct 32.3 % (35.5-45.6) L 02/20/20 04:57 MCV 70 fl (84-94) L 02/20/20 04:57 MCH 22 pg (28-32) L 02/20/20 04:57 MCHC 31 % (32-34) L 02/20/20 04:57 RDW 18.4 % (13.2-15.2) H 02/20/20 04:57 Plt Count 295 K/mm3 (140-440) 02/20/20 04:57 Add Manual Diff Complete 02/20/20 04:57 Total Counted 100 02/20/20 04:57 Seg Neutrophils % Manager Assisted Living 02/20/20 04:57 Seg Neuts % (Manual) 96.0 % (40.0-70.0) H 02/20/20 04:57 Band Neutrophils % 0 % 02/20/20 04:57 Lymphocytes % (Manual) 4.0 % (13.4-35.0) L 02/20/20 04:57 Reactive Lymphs % (Man) 0 % 02/20/20 04:57 Monocytes % (Manual) 0 % (0.0-7.3) 02/20/20 04:57 Eosinophils % (Manual) 0 % (0.0-4.3) 02/20/20 04:57 Basophils % (Manual) 0 % (0.0-1.8) 02/20/20 04:57 Metamyelocytes % 0 % 02/20/20 04:57 Myelocytes % 0 % 02/20/20 04:57 Promyelocytes % 0 % 02/20/20 04:57 Blast Cells % 0 % 02/20/20 04:57 Nucleated RBC % Not Reportable 02/20/20 04:57 Seg Neutrophils # Man 6.2 K/mm3 (1.8-7.7) 02/20/20 04:57 Band Neutrophils # 0.0 K/mm3 02/20/20 04:57 Lymphocytes # (Manual) 0.3 K/mm3 (1.2-5.4) L 02/20/20 04:57 Abs React Lymphs (Man) 0.0 K/mm3 02/20/20 04:57 Monocytes # (Manual) 0.0 K/mm3 (0.0-0.8) 02/20/20 04:57 Eosinophils # (Manual) 0.0 K/mm3 (0.0-0.4) 02/20/20 04:57 Basophils # (Manual) 0.0 K/mm3 (0.0-0.1) 02/20/20 04:57 Metamyelocytes # 0.0 K/mm3 02/20/20 04:57 Myelocytes # 0.0 K/mm3 02/20/20 04:57 Promyelocytes # 0.0 K/mm3 02/20/20 04:57 Blast Cells # 0.0 K/mm3 02/20/20 04:57 WBC Morphology Not Reportable 02/20/20 04:57 Hypersegmented Neuts Not Reportable 02/20/20 04:57 Hyposegmented Neuts Not Reportable 02/20/20 04:57 Hypogranular Neuts Not Reportable 02/20/20 04:57 Smudge Cells Not Reportable 02/20/20 04:57 Toxic Granulation Not Reportable 02/20/20 04:57 Toxic Vacuolation Not Reportable 02/20/20 04:57 Dohle Bodies Not Reportable 02/20/20 04:57 Pelger-Huet Anomaly Not Reportable 02/20/20 04:57 Reshma Rods Not Reportable 02/20/20 04:57 Platelet Estimate Consistent w auto 02/20/20 04:57 Clumped Platelets Not Reportable 02/20/20 04:57 Plt Clumps, EDTA Not Reportable 02/20/20 04:57 Large Platelets Not Reportable 02/20/20 04:57 Giant Platelets Not Reportable 02/20/20 04:57 Platelet Satelliting Not Reportable 02/20/20 04:57 Plt Morphology Comment Not Reportable 02/20/20 04:57 RBC Morphology Not Reportable 02/20/20 04:57 Dimorphic RBCs Not Reportable 02/20/20 04:57 Polychromasia Not Reportable 02/20/20 04:57 Hypochromasia 1+ 02/20/20 04:57 Poikilocytosis Few 02/20/20 04:57 Anisocytosis Not Reportable 02/20/20 04:57 Microcytosis Not Reportable 02/20/20 04:57 Macrocytosis Not Reportable 02/20/20 04:57 Spherocytes Few 02/20/20 04:57 Pappenheimer Bodies Not Reportable 02/20/20 04:57 Sickle Cells Not Reportable 02/20/20 04:57 Target Cells Not Reportable 02/20/20 04:57 Tear Drop Cells Not Reportable 02/20/20 04:57 Ovalocytes Not Reportable 02/20/20 04:57 Helmet Cells Not Reportable 02/20/20 04:57 Pfeiffer-[place] Bodies Not Reportable 02/20/20 04:57 [place] Rings Not Reportable 02/20/20 04:57 Christa Cells Not Reportable 02/20/20 04:57 Bite Cells Not Reportable 02/20/20 04:57 Crenated Cell Not Reportable 02/20/20 04:57 Elliptocytes Few 02/20/20 04:57 Acanthocytes (Spur) Not Reportable 02/20/20 04:57 Rouleaux Not Reportable 02/20/20 04:57 Hemoglobin C Crystals Not Reportable 02/20/20 04:57 Schistocytes Few 02/20/20 04:57 Malaria parasites Not Reportable 02/20/20 04:57 Ricky Bodies Not Reportable 02/20/20 04:57 Hem Pathologist Commnt No 02/20/20 04:57 D-Dimer 317.92 ng/mlDDU (0-234) H 02/19/20 18:00 Sodium 138 mmol/L (137-145) 02/21/20 05:41 Potassium 4.6 mmol/L (3.6-5.0) 02/21/20 05:41 Chloride 103.6 mmol/L (98-107) 02/21/20 05:41 Carbon Dioxide 26 mmol/L (22-30) 02/21/20 05:41 Anion Gap 13 mmol/L 02/21/20 05:41 BUN 21 mg/dL (9-20) H 02/21/20 05:41 Creatinine 0.9 mg/dL (0.8-1.3) 02/21/20 05:41 Estimated GFR > 60 ml/min 02/21/20 05:41 BUN/Creatinine Ratio 23 % 02/21/20 05:41 Glucose 136 mg/dL (75-100) H 02/21/20 05:41 Calcium 9.2 mg/dL (8.4-10.2) 02/21/20 05:41 Ferritin 23.7 ng/mL (30.0-300.0) L 02/19/20 17:59 Lactate Dehydrogenase 194 units/L (91-180) H 02/19/20 18:00 C-Reactive Protein 3.00 mg/dL (0.00-1.30) H 02/19/20 18:00 NT-Pro-B Natriuret Pep 1162 pg/mL (0-900) H 02/19/20 15:51 Procalcitonin < 0.05 ng/mL (<0.15) 02/19/20 18:00 Coronavirus (PCR) Positive (Negative) A 02/20/20 10:27 Cheng/IV: Voiding Method Toilet IV Catheter Type [Left Forearm INT / Saline Lock ] Active Medications - Current Medications Current Medications: Generic Name Dose Route Start Last Admin Trade Name Freq PRN Reason Stop Dose Admin Acetaminophen 650 mg 02/19/20 17:55 02/20/20 08:26 Tylenol PO 650 mg Q4H PRN Administration Pain MILD(1-3)/Fever >100.5/PEREZ Albuterol 2.5 mg 02/19/20 17:55 02/21/20 04:34 Proventil IH 2.5 mg Q4HRT PRN Administration Shortness Of Breath Albuterol/Ipratropium 1 ampul 02/20/20 08:00 02/22/20 07:45 Duoneb *Not For Prn Use* IH 1 ampul TIDRT ALEXANDRA Administration Alprazolam 1 mg 02/19/20 22:00 02/21/20 22:00 Xanax PO 1 mg BID ALEXANDRA Administration Folic Acid 1 mg 02/20/20 10:00 02/21/20 09:52 Folvite PO 1 mg DAILY ALEXANDRA Administration Furosemide 40 mg 02/22/20 08:33 Lasix IV 02/22/20 08:34 ONCE ONE Guaifenesin 20 ml 02/20/20 09:15 02/21/20 17:51 Guaifenesin Dm Syrup PO 20 ml Q4H PRN Administration Cough Heparin Sodium (Porcine) 5,000 unit 02/19/20 22:00 02/21/20 22:01 Heparin SUB-Q 5,000 unit Q12HR ALEXANDRA Administration Lidocaine HCl 15 ml 02/21/20 14:00 02/21/20 22:04 Magic Mouthwash PO 15 ml TID ALEXANDRA Administration Methadone HCl 20 mg 02/20/20 10:00 02/22/20 01:37 Dolophine PO 20 mg Q8H ALEXANDRA Administration Methylprednisolone Sodium Succinate 40 mg 02/19/20 22:00 02/22/20 05:38 Solu-Medrol IV 40 mg Q8HR ALEXANDRA Administration Miscellaneous Medication 10 mg 02/19/20 22:00 Dextroamphetamine/Amphetamine [Adderall 10 Mg Tablet] PO BID ALEXANDRA Nifedipine 90 mg 02/20/20 10:00 02/21/20 09:52 Procardia Xl PO 90 mg QDAY ALEXANDRA Administration Ondansetron HCl 4 mg 02/19/20 17:55 Zofran IV Q8H PRN Nausea And Vomiting Oxycodone/Acetaminophen 2 tab 02/19/20 17:58 02/21/20 22:01 Percocet 5/325 PO 2 tab Q6H PRN Administration Pain, Moderate (4-6) Paroxetine HCl 10 mg 02/20/20 10:00 02/21/20 09:52 Paxil PO 10 mg DAILY ALEXANDRA Administration Sodium Chloride 10 ml 02/19/20 22:00 02/21/20 22:02 Sodium Chloride Flush Syringe 10 Ml IV 10 ml BID ALEXANDRA Administration Sodium Chloride 10 ml 02/19/20 17:55 02/22/20 05:38 Sodium Chloride Flush Syringe 10 Ml IV 10 ml PRN PRN Administration LINE FLUSH Trazodone HCl 100 mg 02/19/20 22:00 02/21/20 22:01 Desyrel PO 100 mg QHS ALEXANDRA Administration
[2020-02-22] MEDS: NIFEdipine XL 90 MG TAB PO SCH (09:44)
[2020-02-22] MEDS: FOLIC ACID 1 MG TAB PO SCH (09:44)
[2020-02-22] MEDS: ALPRAZolam 1 MG TAB PO SCH ×2 (09:44→21:25)
[2020-02-22] MEDS: PARoxetine 10 MG TAB PO SCH (09:44)
[2020-02-22] MEDS: MAGIC MOUTHWASH 30ML PO SCH ×3 (09:47→21:25)
[2020-02-22] MEDS ORDERED: FUROSEMIDE 40 MG/4 ML INJ IV ONE (10:00)
[2020-02-22] MEDS: HEPARIN 5,000 UNIT/1 ML VIAL SUB-Q SCH ×2 (11:24→21:26)
[2020-02-22] MEDS: oxyCODONE /ACETAMINOPHEN 5-325MG TAB PO PRN ×2 (11:24→21:26)
[2020-02-22] MEDS: traZODone 100 MG TAB PO SCH (21:26)
[2020-02-23] MEDS: METHADONE 5 MG TAB PO SCH ×2 (01:03→10:54)
[2020-02-23] MEDS: methylPREDNISolone Sod Succinate 40 MG/1 ML INJ IV SCH ×3 (05:25→22:34)
[2020-02-23 06:48] LABS: BUN/Creatinine Ratio 32; Blood Urea Nitrogen 35 mg/dL (9-20); Calcium 9.2 mg/dL (8.4-10.2); Hemolysis Index 6
[2020-02-23] MEDS: IPRATROPIUM/ALBUTEROL SULFATE 3 ML AMPUL.NEB IH SCH ×3 (07:48→20:12)
[2020-02-23] MEDS: MAGIC MOUTHWASH 30ML PO SCH ×3 (10:10→20:30)
[2020-02-23] MEDS: NIFEdipine XL 90 MG TAB PO SCH (10:11)
[2020-02-23] MEDS: FOLIC ACID 1 MG TAB PO SCH (10:11)
[2020-02-23] MEDS: HEPARIN 5,000 UNIT/1 ML VIAL SUB-Q SCH ×2 (10:11→22:35)
[2020-02-23] MEDS: PARoxetine 10 MG TAB PO SCH (10:12)
[2020-02-23] MEDS: ALPRAZolam 1 MG TAB PO SCH ×2 (10:12→22:35)
[2020-02-23] MEDS: oxyCODONE /ACETAMINOPHEN 5-325MG TAB PO PRN ×2 (13:36→22:48)
--- NOTE | 2020-02-23 14:22 | Consultation ---
History of Present Illness - Reason for Consult Consult date: 02/23/20 - History of Present Illness 55-year-old male past medical history arthritis, hypertension, COPD, DVT, nicotine dependence admitted to the hospital complaining of shortness of breath. He notes the symptoms began approximately 3 days prior to admission, and were progressively worsening. He also complains of associated fatigue, malaise, fevers. He was found to be hypoxic on presentation to the emergency room, and was admitted for COVID-19 rule out. Afebrile since admission with a normal white count. Currently on me thylprednisolone, no antibiotics. Covid testing positive. No cultures available for review. Imaging personally reviewed: Chest CT: Scattered groundglass opacities. Review of Systems: Bold if positive, otherwise negative General: fevers, chills, rigors HEENT: visual disturbance, diplopia, eye pain Respiratory: cough, sputum, hemoptysis, shortness of breath Cardiovascular: chest pain, syncope Gastrointestinal: nausea, vomiting, diarrhea, abdominal pain Genitourinary: dysuria, hematuria, flank pain Musculoskeletal: neck pain, back pain, joint pain, edema Neurologic: headaches, seizures Hematologic: easy bruising or bleeding Endocrine: night sweats, acute weight loss Skin: rash, jaundice, redness Psychiatric: suicidal, homicidal ideation Past History Past Medical History: arthritis, COPD, DVT, hypertension, other (See HPI) Past Surgical History: bowel surgery, Other (IVC filter placement and removal) Social history: , smoking. denies: alcohol abuse, prescription drug abuse Family history: hypertension Medications and Allergies Allergies Allergy/AdvReac Type Severity Reaction Status Date / Time No Known Allergies Allergy Verified 11/22/16 01:19 Home Medications Medication Instructions Recorded Confirmed Last Taken Type Dextroamphetamine/Amphetamine 10 mg PO BID 11/24/16 11/24/16 Unknown History [Adderall 10 mg Tablet] Folic Acid [Folvite] 1 mg PO DAILY 11/24/16 11/24/16 Unknown History NIFEdipine XL [Procardia Xl] 90 mg PO QDAY 11/24/16 11/24/16 Unknown History Potassium Chloride 20 meq PO DAILY 11/24/16 11/24/16 Unknown History traZODone [Desyrel] 100 mg PO QHS 11/24/16 11/24/16 Unknown History ALPRAZolam [Xanax TAB] 1 mg PO BID #14 tablet 11/29/16 Unknown Rx PARoxetine [Paxil] 10 mg PO DAILY #10 tablet 11/29/16 Unknown Rx oxyCODONE /ACETAMINOPHEN [Percocet 2 tab PO Q6H PRN #14 tablet 11/29/16 Unknown Rx 5/325 mg] Active Meds: Active Medications Acetaminophen (Tylenol) 650 mg PO Q4H PRN PRN Reason: Pain MILD(1-3)/Fever >100.5/PEREZ Last Admin: 02/20/20 08:26 Dose: 650 mg Documented by: Albuterol (Proventil) 2.5 mg IH Q4HRT PRN PRN Reason: Shortness Of Breath Last Admin: 02/21/20 04:34 Dose: 2.5 mg Documented by: Albuterol/Ipratropium (Duoneb *Not For Prn Use*) 1 ampul IH TIDRT [facility] Last Admin: 02/23/20 07:48 Dose: 1 ampul Documented by: Alprazolam (Xanax) 1 mg PO BID [facility] Last Admin: 02/23/20 10:12 Dose: 1 mg Documented by: Folic Acid (Folvite) 1 mg PO DAILY [facility] Last Admin: 02/23/20 10:11 Dose: 1 mg Documented by: Guaifenesin (Guaifenesin Dm Syrup) 20 ml PO Q4H PRN PRN Reason: Cough Last Admin: 02/21/20 17:51 Dose: 20 ml Documented by: Heparin Sodium (Porcine) (Heparin) 5,000 unit SUB-Q Q12HR [facility] Last Admin: 02/23/20 10:11 Dose: 5,000 unit Documented by: Lidocaine HCl (Magic Mouthwash) 15 ml PO TID [facility] Last Admin: 02/23/20 13:36 Dose: 15 ml Documented by: Methadone HCl (Dolophine) 20 mg PO Q8H [facility] Last Admin: 02/23/20 10:54 Dose: 20 mg Documented by: Methylprednisolone Sodium Succinate (Solu-Medrol) 40 mg IV Q8HR [facility] Last Admin: 02/23/20 13:36 Dose: 40 mg Documented by: Miscellaneous Medication (Dextroamphetamine/Amphetamine [Adderall 10 Mg Tablet]) 10 mg PO BID [facility] Nifedipine (Procardia Xl) 90 mg PO QDAY [facility] Last Admin: 02/23/20 10:11 Dose: 90 mg Documented by: Ondansetron HCl (Zofran) 4 mg IV Q8H PRN PRN Reason: Nausea And Vomiting Oxycodone/Acetaminophen (Percocet 5/325) 2 tab PO Q6H PRN PRN Reason: Pain, Moderate (4-6) Last Admin: 02/23/20 13:36 Dose: 2 tab Documented by: Paroxetine HCl (Paxil) 10 mg PO DAILY [facility] Last Admin: 02/23/20 10:12 Dose: 10 mg Documented by: Sodium Chloride (Sodium Chloride Flush Syringe 10 Ml) 10 ml IV BID [facility] Last Admin: 02/23/20 10:12 Dose: 10 ml Documented by: Sodium Chloride (Sodium Chloride Flush Syringe 10 Ml) 10 ml IV PRN PRN PRN Reason: LINE FLUSH Last Admin: 02/22/20 05:38 Dose: 10 ml Documented by: Trazodone HCl (Desyrel) 100 mg PO QHS [facility] Last Admin: 02/22/20 21:26 Dose: 100 mg Documented by: Physical Examination - Physical Exam Narrative exam: Physical exam deferred due to PPE conservation strategy. Please refer to primary team's note. - Constitutional Vitals: Vital Signs Temp Pulse Resp BP Pulse Ox 98.3 F 74 16 136/96 99 02/23/20 05:00 02/23/20 08:00 02/23/20 08:00 02/23/20 05:00 02/23/20 08:41 Temperature -Last 24 Hours Temperature 98.3 F Temperature 98.1 F Temperature 97.3 F Results - Labs CBC & Chem 7: 02/20/20 04:57 02/23/20 05:15 Labs: Abnormal lab results 02/23/20 Range/Units 05:15 BUN 35 H (9-20) mg/dL Glucose 108 H (75-100) mg/dL Assessment and Plan Cultures: Blood culture Urine culture Sputum culture Wound culture A/P: 55-year-old male past medical history arthritis, hypertension, COPD, DVT, nicotine dependence admitted with COVID-19 pneumonia #COVID-19 pneumonia: Candidate for remdesivir, would start. #Acute hypoxemic respiratory failure: Likely secondary to COVID-19 infection. Currently on 2 L nasal cannula #COPD: Currently receiving steroids #History of DVT: Anticoagulation Recs: -Continue steroids for 10 days. -Start Remdesivir 200 mg IV q day x 1 followed by 100 mg IV q day x 4 days. Monitor renal and hepatic function while receiving -Does not need to stay for full course if improving, can discharge prior to completing 5 days. -Obtain daily inflammatory markers - ferritin, Ddimer, CRP, LDH -Proning as able -Anticoagulation per hospital protocol Thank you for the consult, we will continue to follow. Mello Boyd MD [facility] ([facility] O: [phone] F: [phone]
--- NOTE | 2020-02-23 17:49 | Progress Note ---
Assessment and Plan Assessment and plan: -- Acute hypoxemic respiratory failure Current Visit: Yes Status: Acute Plan to address problem: Oxygen titrate O2 sats to more than 90% BiPAP as needed --COVID 19+ patient/pneumonia Current Visit: Yes Status: Acute Plan to address problem: Continue current management per protocol Continue steroids for total 10 days. Consider remdesivir 200 mg IV q day x 1 followed by 100 mg IV q day x 4 days. Follow inflammatory markers - ferritin, Ddimer, CRP, LDH Proning position if patient is able to maintain Anticoagulation per protocols --COPD (chronic obstructive pulmonary disease) Current Visit: Yes Status: Acute Plan to address problem: Supplemental oxygen, steroid therapy, supportive care. --Nicotine dependence Current Visit: Yes Status: Acute wal Plan to address problem: Smoking cessation counseling, supportive care, behavior change counseling, +15 minutes. Hyperkalemia -Renal function is okay -I put the patient on Kayexalate, will monitor BMP --DVT prophylaxis Current Visit: Yes Status: Acute Plan to address problem: SCD to bilateral lower extremities while in bed, prophylactic anticoagulation. Patient was complaining a lot of cough and is on given Robitussin syrup. Patient is complaining generalized pain and he used to take methadone resumed it. 02/21/2020 -Covid test was positive yesterday, patient is on dexamethasone -Procalcitonin level is negative and I will discontinue the IV antibiotic -Continue with oxygen supplement 02/22/2020 -Patient has Covid and is on dexamethasone -IV antibiotics discontinued because of low procalcitonin level -Patient is still requiring oxygen -Patient has elevated BNP and shortness of breath so we ordered echo but was not done. Give him a dose of IV Lasix. 02/23/2020; Continue current management Patient has history of ADHD, request to resume Adderall/Ritalin Follow inflammatory markers Continue isolation precautions 02/24/2020; ID recommendations noted and appreciated Continue steroids and remdesivir Adderall is not available in the pharmacy, will DC History Interval history: I have seen and examined the patient at the bedside Patient's chart and medications reviewed Isolation precautions and PPE protocols strictly followed Patient complains of some cough and congestion Vital signs noted Hospitalist Physical - Constitutional Vitals: Temp Pulse Resp BP Pulse Ox 98.3 F 74 16 136/96 99 02/23/20 05:00 02/23/20 08:00 02/23/20 08:00 02/23/20 05:00 02/23/20 08:41 General appearance: Present: mild distress, well-nourished - EENT Eyes: Present: PERRL, EOM intact - Neck Neck: Present: supple, normal ROM - Respiratory Respiratory effort: normal Respiratory: bilateral: diminished, rhonchi, negative: rales, wheezing - Cardiovascular Rhythm: regular Heart Sounds: Present: S1 & S2 - Extremities Extremities: no ischemia, No edema - Abdominal General gastrointestinal: soft, non-tender, non-distended, normal bowel sounds - Integumentary Integumentary: Present: clear, warm - Psychiatric Psychiatric: appropriate mood/affect, cooperative - Neurologic Neurologic: CNII-XII intact, moves all extremities Results - Labs CBC & Chem 7: 02/20/20 04:57 02/23/20 05:15 Labs: Laboratory Last Values WBC 6.5 K/mm3 (4.5-11.0) 02/20/20 04:57 RBC 4.61 M/mm3 (3.65-5.03) 02/20/20 04:57 Hgb 10.1 gm/dl (11.8-15.2) L 02/20/20 04:57 Hct 32.3 % (35.5-45.6) L 02/20/20 04:57 MCV 70 fl (84-94) L 02/20/20 04:57 MCH 22 pg (28-32) L 02/20/20 04:57 MCHC 31 % (32-34) L 02/20/20 04:57 RDW 18.4 % (13.2-15.2) H 02/20/20 04:57 Plt Count 295 K/mm3 (140-440) 02/20/20 04:57 Add Manual Diff Complete 02/20/20 04:57 Total Counted 100 02/20/20 04:57 Seg Neutrophils % Brand Strategy Manager 02/20/20 04:57 Seg Neuts % (Manual) 96.0 % (40.0-70.0) H 02/20/20 04:57 Band Neutrophils % 0 % 02/20/20 04:57 Lymphocytes % (Manual) 4.0 % (13.4-35.0) L 02/20/20 04:57 Reactive Lymphs % (Man) 0 % 02/20/20 04:57 Monocytes % (Manual) 0 % (0.0-7.3) 02/20/20 04:57 Eosinophils % (Manual) 0 % (0.0-4.3) 02/20/20 04:57 Basophils % (Manual) 0 % (0.0-1.8) 02/20/20 04:57 Metamyelocytes % 0 % 02/20/20 04:57 Myelocytes % 0 % 02/20/20 04:57 Promyelocytes % 0 % 02/20/20 04:57 Blast Cells % 0 % 02/20/20 04:57 Nucleated RBC % Not Reportable 02/20/20 04:57 Seg Neutrophils # Man 6.2 K/mm3 (1.8-7.7) 02/20/20 04:57 Band Neutrophils # 0.0 K/mm3 02/20/20 04:57 Lymphocytes # (Manual) 0.3 K/mm3 (1.2-5.4) L 02/20/20 04:57 Abs React Lymphs (Man) 0.0 K/mm3 02/20/20 04:57 Monocytes # (Manual) 0.0 K/mm3 (0.0-0.8) 02/20/20 04:57 Eosinophils # (Manual) 0.0 K/mm3 (0.0-0.4) 02/20/20 04:57 Basophils # (Manual) 0.0 K/mm3 (0.0-0.1) 02/20/20 04:57 Metamyelocytes # 0.0 K/mm3 02/20/20 04:57 Myelocytes # 0.0 K/mm3 02/20/20 04:57 Promyelocytes # 0.0 K/mm3 02/20/20 04:57 Blast Cells # 0.0 K/mm3 02/20/20 04:57 WBC Morphology Not Reportable 02/20/20 04:57 Hypersegmented Neuts Not Reportable 02/20/20 04:57 Hyposegmented Neuts Not Reportable 02/20/20 04:57 Hypogranular Neuts Not Reportable 02/20/20 04:57 Smudge Cells Not Reportable 02/20/20 04:57 Toxic Granulation Not Reportable 02/20/20 04:57 Toxic Vacuolation Not Reportable 02/20/20 04:57 Dohle Bodies Not Reportable 02/20/20 04:57 Pelger-Huet Anomaly Not Reportable 02/20/20 04:57 Reshma Rods Not Reportable 02/20/20 04:57 Platelet Estimate Consistent w auto 02/20/20 04:57 Clumped Platelets Not Reportable 02/20/20 04:57 Plt Clumps, EDTA Not Reportable 02/20/20 04:57 Large Platelets Not Reportable 02/20/20 04:57 Giant Platelets Not Reportable 02/20/20 04:57 Platelet Satelliting Not Reportable 02/20/20 04:57 Plt Morphology Comment Not Reportable 02/20/20 04:57 RBC Morphology Not Reportable 02/20/20 04:57 Dimorphic RBCs Not Reportable 02/20/20 04:57 Polychromasia Not Reportable 02/20/20 04:57 Hypochromasia 1+ 02/20/20 04:57 Poikilocytosis Few 02/20/20 04:57 Anisocytosis Not Reportable 02/20/20 04:57 Microcytosis Not Reportable 02/20/20 04:57 Macrocytosis Not Reportable 02/20/20 04:57 Spherocytes Few 02/20/20 04:57 Pappenheimer Bodies Not Reportable 02/20/20 04:57 Sickle Cells Not Reportable 02/20/20 04:57 Target Cells Not Reportable 02/20/20 04:57 Tear Drop Cells Not Reportable 02/20/20 04:57 Ovalocytes Not Reportable 02/20/20 04:57 Helmet Cells Not Reportable 02/20/20 04:57 [place] Bodies Not Reportable 02/20/20 04:57 [place] Rings Not Reportable 02/20/20 04:57 Christa Cells Not Reportable 02/20/20 04:57 Bite Cells Not Reportable 02/20/20 04:57 Crenated Cell Not Reportable 02/20/20 04:57 Elliptocytes Few 02/20/20 04:57 Acanthocytes (Spur) Not Reportable 02/20/20 04:57 Rouleaux Not Reportable 02/20/20 04:57 Hemoglobin C Crystals Not Reportable 02/20/20 04:57 Schistocytes Few 02/20/20 04:57 Malaria parasites Not Reportable 02/20/20 04:57 Ricky Bodies Not Reportable 02/20/20 04:57 Hem Pathologist Commnt No 02/20/20 04:57 D-Dimer 317.92 ng/mlDDU (0-234) H 02/19/20 18:00 Sodium 139 mmol/L (137-145) 02/23/20 05:15 Potassium 4.7 mmol/L (3.6-5.0) 02/23/20 05:15 Chloride 102.2 mmol/L (98-107) 02/23/20 05:15 Carbon Dioxide 25 mmol/L (22-30) 02/23/20 05:15 Anion Gap 17 mmol/L 02/23/20 05:15 BUN 35 mg/dL (9-20) H 02/23/20 05:15 Creatinine 1.1 mg/dL (0.8-1.3) 02/23/20 05:15 Estimated GFR > 60 ml/min 02/23/20 05:15 BUN/Creatinine Ratio 32 % 02/23/20 05:15 Glucose 108 mg/dL (75-100) H 02/23/20 05:15 Calcium 9.2 mg/dL (8.4-10.2) 02/23/20 05:15 Ferritin 23.7 ng/mL (30.0-300.0) L 02/19/20 17:59 Lactate Dehydrogenase 194 units/L (91-180) H 02/19/20 18:00 C-Reactive Protein 3.00 mg/dL (0.00-1.30) H 02/19/20 18:00 NT-Pro-B Natriuret Pep 1162 pg/mL (0-900) H 02/19/20 15:51 Procalcitonin < 0.05 ng/mL (<0.15) 02/19/20 18:00 Coronavirus (PCR) Positive (Negative) A 02/20/20 10:27 Cheng/IV: Voiding Method Urinal IV Catheter Type [Left Forearm INT / Saline Lock ] Active Medications - Current Medications Current Medications: Generic Name Dose Route Start Last Admin Trade Name Freq PRN Reason Stop Dose Admin Acetaminophen 650 mg 02/19/20 17:55 02/20/20 08:26 Tylenol PO 650 mg Q4H PRN Administration Pain MILD(1-3)/Fever >100.5/PEREZ Albuterol 2.5 mg 02/19/20 17:55 02/21/20 04:34 Proventil IH 2.5 mg Q4HRT PRN Administration Shortness Of Breath Albuterol/Ipratropium 1 ampul 02/20/20 08:00 02/23/20 14:35 Duoneb *Not For Prn Use* IH 1 ampul TIDRT ALEXANDRA Administration Alprazolam 1 mg 02/19/20 22:00 02/23/20 10:12 Xanax PO 1 mg BID ALEXANDRA Administration Folic Acid 1 mg 02/20/20 10:00 02/23/20 10:11 Folvite PO 1 mg DAILY ALEXANDRA Administration Guaifenesin 20 ml 02/20/20 09:15 02/21/20 17:51 Guaifenesin Dm Syrup PO 20 ml Q4H PRN Administration Cough Heparin Sodium (Porcine) 5,000 unit 02/19/20 22:00 02/23/20 10:11 Heparin SUB-Q 5,000 unit Q12HR ALEXANDRA Administration Lidocaine HCl 15 ml 02/21/20 14:00 02/23/20 13:36 Magic Mouthwash PO 15 ml TID ALEXANDRA Administration Methadone HCl 20 mg 02/20/20 10:00 02/23/20 10:54 Dolophine PO 20 mg Q8H ALEXANDRA Administration Methylprednisolone Sodium Succinate 40 mg 02/19/20 22:00 02/23/20 13:36 Solu-Medrol IV 40 mg Q8HR ALEXANDRA Administration Miscellaneous Medication 10 mg 02/19/20 22:00 Dextroamphetamine/Amphetamine [Adderall 10 Mg Tablet] PO BID ALEXANDRA Nifedipine 90 mg 02/20/20 10:00 02/23/20 10:11 Procardia Xl PO 90 mg QDAY ALEXANDRA Administration Ondansetron HCl 4 mg 02/19/20 17:55 Zofran IV Q8H PRN Nausea And Vomiting Oxycodone/Acetaminophen 2 tab 02/19/20 17:58 02/23/20 13:36 Percocet 5/325 PO 2 tab Q6H PRN Administration Pain, Moderate (4-6) Paroxetine HCl 10 mg 02/20/20 10:00 02/23/20 10:12 Paxil PO 10 mg DAILY ALEXANDRA Administration Sodium Chloride 10 ml 02/19/20 22:00 02/23/20 10:12 Sodium Chloride Flush Syringe 10 Ml IV 10 ml BID ALEXANDRA Administration Sodium Chloride 10 ml 02/19/20 17:55 02/22/20 05:38 Sodium Chloride Flush Syringe 10 Ml IV 10 ml PRN PRN Administration LINE FLUSH Trazodone HCl 100 mg 02/19/20 22:00 02/22/20 21:26 Desyrel PO 100 mg QHS ALEXANDRA Administration
[2020-02-23] MEDS: traZODone 100 MG TAB PO SCH (22:35)
[2020-02-24] MEDS: METHADONE 5 MG TAB PO SCH ×3 (02:49→19:26)
[2020-02-24] MEDS: methylPREDNISolone Sod Succinate 40 MG/1 ML INJ IV SCH ×3 (05:44→21:20)
[2020-02-24] MEDS: ARFORMOTEROL 15 MCG/2 ML NEBU IH SCH ×2 (07:32→21:28)
[2020-02-24] MEDS: BUDESONIDE 0.5 MG/2 ML NEBU IH SCH ×2 (07:32→21:28)
--- NOTE | 2020-02-24 09:22 | Progress Note ---
Assessment and Plan Assessment and plan: -- Acute hypoxemic respiratory failure Current Visit: Yes Status: Acute Plan to address problem: Continue nasal cannula oxygen, titrate O2 sats to more than 90% Evaluation for home oxygen at discharge --COVID-19 pneumonia Current Visit: Yes Status: Acute Plan to address problem: Pneumonia protocol: Chest x-ray, CBC, CMP, IV antibiotic therapy, nebulizer therapy, supplemental oxygen, blood culture. --COVID 19+ patient Current Visit: Yes Status: Acute Plan to address problem: Continue current management per protocol Continue steroids for total 10 days. ID started Remdesivir 200 mg IV q day x 1 followed by 100 mg IV q day x 4 days. We will monitor renal and hepatic function while receiving Does not need to stay for full course if improving, can discharge prior to completing 5 days. Follow inflammatory markers - ferritin, Ddimer, CRP, LDH Proning position if patient is able to maintain Anticoagulation per protocols --COPD (chronic obstructive pulmonary disease) Current Visit: Yes Status: Acute Plan to address problem: Supplemental oxygen, steroid therapy, supportive care. --Nicotine dependence Current Visit: Yes Status: Acute wal Plan to address problem: Smoking cessation counseling, supportive care, behavior change counseling, +15 minutes. Hyperkalemia -Renal function is okay -I put the patient on Kayexalate, will monitor BMP --DVT prophylaxis Current Visit: Yes Status: Acute Plan to address problem: SCD to bilateral lower extremities while in bed, prophylactic anticoagulation. Patient was complaining a lot of cough and is on given Robitussin syrup. Patient is complaining generalized pain and he used to take methadone resumed it. 02/21/2020 -Covid test was positive yesterday, patient is on dexamethasone -Procalcitonin level is negative and I will discontinue the IV antibiotic -Continue with oxygen supplement 02/22/2020 -Patient has Covid and is on dexamethasone -IV antibiotics discontinued because of low procalcitonin level -Patient is still requiring oxygen -Patient has elevated BNP and shortness of breath so we ordered echo but was not done. Give him a dose of IV Lasix. 02/23/2020; Continue current management Patient has history of ADHD, request to resume Adderall/Ritalin Follow inflammatory markers Continue isolation precautions 02/24/2020; patient feels slightly better Complains of dryness of skin, wants double portion of We will closely monitor the patient and adjust the management as needed History Interval history: I have seen and examined the patient at the bedside Isolation precautions PPE protocols strictly followed Patient feels better complains of some dryness of skin And also requests for double portions of meals Vital signs noted Hospitalist Physical - Constitutional Vitals: Temp Pulse Resp BP Pulse Ox 98.7 F 78 20 122/73 91 02/24/20 04:35 02/24/20 04:35 02/24/20 04:35 02/24/20 04:35 02/24/20 04:35 General appearance: Present: no acute distress, cachectic, disheveled - EENT Eyes: Present: PERRL, EOM intact - Neck Neck: Present: supple, normal ROM - Respiratory Respiratory effort: normal Respiratory: bilateral: diminished, rhonchi, negative: rales, wheezing - Cardiovascular Rhythm: regular Heart Sounds: Present: S1 & S2 - Extremities Extremities: no ischemia, No edema - Abdominal General gastrointestinal: soft, non-tender, non-distended, normal bowel sounds - Integumentary Integumentary: Present: clear, warm - Psychiatric Psychiatric: appropriate mood/affect, cooperative - Neurologic Neurologic: CNII-XII intact, moves all extremities Results - Labs CBC & Chem 7: 02/20/20 04:57 02/23/20 05:15 Labs: Laboratory Last Values WBC 6.5 K/mm3 (4.5-11.0) 02/20/20 04:57 RBC 4.61 M/mm3 (3.65-5.03) 02/20/20 04:57 Hgb 10.1 gm/dl (11.8-15.2) L 02/20/20 04:57 Hct 32.3 % (35.5-45.6) L 02/20/20 04:57 MCV 70 fl (84-94) L 02/20/20 04:57 MCH 22 pg (28-32) L 02/20/20 04:57 MCHC 31 % (32-34) L 02/20/20 04:57 RDW 18.4 % (13.2-15.2) H 02/20/20 04:57 Plt Count 295 K/mm3 (140-440) 02/20/20 04:57 Add Manual Diff Complete 02/20/20 04:57 Total Counted 100 02/20/20 04:57 Seg Neutrophils % Bone Char Operator 02/20/20 04:57 Seg Neuts % (Manual) 96.0 % (40.0-70.0) H 02/20/20 04:57 Band Neutrophils % 0 % 02/20/20 04:57 Lymphocytes % (Manual) 4.0 % (13.4-35.0) L 02/20/20 04:57 Reactive Lymphs % (Man) 0 % 02/20/20 04:57 Monocytes % (Manual) 0 % (0.0-7.3) 02/20/20 04:57 Eosinophils % (Manual) 0 % (0.0-4.3) 02/20/20 04:57 Basophils % (Manual) 0 % (0.0-1.8) 02/20/20 04:57 Metamyelocytes % 0 % 02/20/20 04:57 Myelocytes % 0 % 02/20/20 04:57 Promyelocytes % 0 % 02/20/20 04:57 Blast Cells % 0 % 02/20/20 04:57 Nucleated RBC % Not Reportable 02/20/20 04:57 Seg Neutrophils # Man 6.2 K/mm3 (1.8-7.7) 02/20/20 04:57 Band Neutrophils # 0.0 K/mm3 02/20/20 04:57 Lymphocytes # (Manual) 0.3 K/mm3 (1.2-5.4) L 02/20/20 04:57 Abs React Lymphs (Man) 0.0 K/mm3 02/20/20 04:57 Monocytes # (Manual) 0.0 K/mm3 (0.0-0.8) 02/20/20 04:57 Eosinophils # (Manual) 0.0 K/mm3 (0.0-0.4) 02/20/20 04:57 Basophils # (Manual) 0.0 K/mm3 (0.0-0.1) 02/20/20 04:57 Metamyelocytes # 0.0 K/mm3 02/20/20 04:57 Myelocytes # 0.0 K/mm3 02/20/20 04:57 Promyelocytes # 0.0 K/mm3 02/20/20 04:57 Blast Cells # 0.0 K/mm3 02/20/20 04:57 WBC Morphology Not Reportable 02/20/20 04:57 Hypersegmented Neuts Not Reportable 02/20/20 04:57 Hyposegmented Neuts Not Reportable 02/20/20 04:57 Hypogranular Neuts Not Reportable 02/20/20 04:57 Smudge Cells Not Reportable 02/20/20 04:57 Toxic Granulation Not Reportable 02/20/20 04:57 Toxic Vacuolation Not Reportable 02/20/20 04:57 Dohle Bodies Not Reportable 02/20/20 04:57 Pelger-Huet Anomaly Not Reportable 02/20/20 04:57 Reshma Rods Not Reportable 02/20/20 04:57 Platelet Estimate Consistent w auto 02/20/20 04:57 Clumped Platelets Not Reportable 02/20/20 04:57 Plt Clumps, EDTA Not Reportable 02/20/20 04:57 Large Platelets Not Reportable 02/20/20 04:57 Giant Platelets Not Reportable 02/20/20 04:57 Platelet Satelliting Not Reportable 02/20/20 04:57 Plt Morphology Comment Not Reportable 02/20/20 04:57 RBC Morphology Not Reportable 02/20/20 04:57 Dimorphic RBCs Not Reportable 02/20/20 04:57 Polychromasia Not Reportable 02/20/20 04:57 Hypochromasia 1+ 02/20/20 04:57 Poikilocytosis Few 02/20/20 04:57 Anisocytosis Not Reportable 02/20/20 04:57 Microcytosis Not Reportable 02/20/20 04:57 Macrocytosis Not Reportable 02/20/20 04:57 Spherocytes Few 02/20/20 04:57 Pappenheimer Bodies Not Reportable 02/20/20 04:57 Sickle Cells Not Reportable 02/20/20 04:57 Target Cells Not Reportable 02/20/20 04:57 Tear Drop Cells Not Reportable 02/20/20 04:57 Ovalocytes Not Reportable 02/20/20 04:57 Helmet Cells Not Reportable 02/20/20 04:57 Pfeiffer-Hooper Bodies Not Reportable 02/20/20 04:57 [place] Rings Not Reportable 02/20/20 04:57 Christa Cells Not Reportable 02/20/20 04:57 Bite Cells Not Reportable 02/20/20 04:57 Crenated Cell Not Reportable 02/20/20 04:57 Elliptocytes Few 02/20/20 04:57 Acanthocytes (Spur) Not Reportable 02/20/20 04:57 Rouleaux Not Reportable 02/20/20 04:57 Hemoglobin C Crystals Not Reportable 02/20/20 04:57 Schistocytes Few 02/20/20 04:57 Malaria parasites Not Reportable 02/20/20 04:57 Ricky Bodies Not Reportable 02/20/20 04:57 Hem Pathologist Commnt No 02/20/20 04:57 D-Dimer 317.92 ng/mlDDU (0-234) H 02/19/20 18:00 Sodium 139 mmol/L (137-145) 02/23/20 05:15 Potassium 4.7 mmol/L (3.6-5.0) 02/23/20 05:15 Chloride 102.2 mmol/L (98-107) 02/23/20 05:15 Carbon Dioxide 25 mmol/L (22-30) 02/23/20 05:15 Anion Gap 17 mmol/L 02/23/20 05:15 BUN 35 mg/dL (9-20) H 02/23/20 05:15 Creatinine 1.1 mg/dL (0.8-1.3) 02/23/20 05:15 Estimated GFR > 60 ml/min 02/23/20 05:15 BUN/Creatinine Ratio 32 % 02/23/20 05:15 Glucose 108 mg/dL (75-100) H 02/23/20 05:15 Calcium 9.2 mg/dL (8.4-10.2) 02/23/20 05:15 Ferritin 23.7 ng/mL (30.0-300.0) L 02/19/20 17:59 Lactate Dehydrogenase 194 units/L (91-180) H 02/19/20 18:00 C-Reactive Protein 3.00 mg/dL (0.00-1.30) H 02/19/20 18:00 NT-Pro-B Natriuret Pep 1162 pg/mL (0-900) H 02/19/20 15:51 Procalcitonin < 0.05 ng/mL (<0.15) 02/19/20 18:00 Coronavirus (PCR) Positive (Negative) A 02/20/20 10:27 Cheng/IV: Voiding Method Toilet IV Catheter Type [Left Forearm INT / Saline Lock ] Active Medications - Current Medications Current Medications: Generic Name Dose Route Start Last Admin Trade Name Freq PRN Reason Stop Dose Admin Acetaminophen 650 mg 02/19/20 17:55 02/20/20 08:26 Tylenol PO 650 mg Q4H PRN Administration Pain MILD(1-3)/Fever >100.5/PEREZ Albuterol 2.5 mg 02/19/20 17:55 02/21/20 04:34 Proventil IH 2.5 mg Q4HRT PRN Administration Shortness Of Breath Alprazolam 1 mg 02/19/20 22:00 02/23/20 22:35 Xanax PO 1 mg BID ALEXANDRA Administration Arformoterol Tartrate 15 mcg 02/24/20 08:00 02/24/20 07:32 Brovana Nebu IH 15 mcg Q12HRT ALEXANDRA Administration Budesonide 0.5 mg 02/24/20 08:00 02/24/20 07:32 Pulmicort IH 0.5 mg Q12HRT ALEXANDRA Administration Folic Acid 1 mg 02/20/20 10:00 02/23/20 10:11 Folvite PO 1 mg DAILY ALEXANDRA Administration Guaifenesin 20 ml 02/20/20 09:15 02/21/20 17:51 Guaifenesin Dm Syrup PO 20 ml Q4H PRN Administration Cough Heparin Sodium (Porcine) 5,000 unit 02/19/20 22:00 02/23/20 22:35 Heparin SUB-Q 5,000 unit Q12HR ALEXANDRA Administration Lidocaine HCl 15 ml 02/21/20 14:00 02/23/20 20:30 Magic Mouthwash PO 15 ml TID ALEXANDRA Administration Methadone HCl 20 mg 02/20/20 10:00 02/24/20 02:49 Dolophine PO 20 mg Q8H ALEXANDRA Administration Methylprednisolone Sodium Succinate 40 mg 02/19/20 22:00 02/24/20 05:44 Solu-Medrol IV 40 mg Q8HR ALEXANDRA Administration Miscellaneous Medication 10 mg 02/19/20 22:00 Dextroamphetamine/Amphetamine [Adderall 10 Mg Tablet] PO BID ALEXANDRA Nifedipine 90 mg 02/20/20 10:00 02/23/20 10:11 Procardia Xl PO 90 mg QDAY ALEXANDRA Administration Ondansetron HCl 4 mg 02/19/20 17:55 Zofran IV Q8H PRN Nausea And Vomiting Oxycodone/Acetaminophen 2 tab 02/19/20 17:58 02/23/20 22:48 Percocet 5/325 PO 2 tab Q6H PRN Administration Pain, Moderate (4-6) Paroxetine HCl 10 mg 02/20/20 10:00 02/23/20 10:12 Paxil PO 10 mg DAILY ALEXANDRA Administration Sodium Chloride 10 ml 02/19/20 22:00 02/23/20 22:35 Sodium Chloride Flush Syringe 10 Ml IV 10 ml BID ALEXANDRA Administration Sodium Chloride 10 ml 02/19/20 17:55 02/22/20 05:38 Sodium Chloride Flush Syringe 10 Ml IV 10 ml PRN PRN Administration LINE FLUSH Trazodone HCl 100 mg 02/19/20 22:00 02/23/20 22:35 Desyrel PO 100 mg QHS ALEXANDRA Administration
[2020-02-24] MEDS: HEPARIN 5,000 UNIT/1 ML VIAL SUB-Q SCH ×2 (09:37→21:22)
[2020-02-24] MEDS: FOLIC ACID 1 MG TAB PO SCH (09:38)
[2020-02-24] MEDS: PARoxetine 10 MG TAB PO SCH (09:38)
[2020-02-24] MEDS: ALPRAZolam 1 MG TAB PO SCH ×2 (09:39→21:21)
[2020-02-24] MEDS: MAGIC MOUTHWASH 30ML PO SCH ×3 (09:51→21:18)
[2020-02-24] MEDS: NIFEdipine XL 90 MG TAB PO SCH (09:52)
[2020-02-24] MEDS: oxyCODONE /ACETAMINOPHEN 5-325MG TAB PO PRN (09:56)
--- NOTE | 2020-02-24 11:46 | Progress Note ---
Assessment and Plan Cultures: COVID-19: positive A/P: 55-year-old male past medical history arthritis, hypertension, COPD, DVT, nicotine dependence admitted with COVID-19 pneumonia #COVID-19 pneumonia: Candidate for remdesivir, would start. #Acute hypoxemic respiratory failure: Likely secondary to COVID-19 infection. Currently on 2 L nasal cannula #COPD: Currently receiving steroids #History of DVT: Anticoagulation Recs: -Continue steroids for 10 days. -Start Remdesivir 200 mg IV q day x 1 followed by 100 mg IV q day x 4 days. Monitor renal and hepatic function while receiving -Does not need to stay for full course if improving, can discharge prior to completing 5 days. -Obtain daily inflammatory markers - ferritin, Ddimer, CRP, LDH -Proning as able -Anticoagulation per hospital protocol Thank you for the consult, we will continue to follow. Mello Boyd MD [facility] ([facility] O: [phone] F: [phone] Subjective Date of service: 02/24/20 Interval history: Afebrile, normal white count. Remains on 2 L nasal cannula. Objective - Exam Narrative Exam: Physical exam deferred due to PPE conservation strategy. Please refer to primary team's note. - Constitutional Vitals: Vital Signs Temp Pulse Resp BP Pulse Ox 98.7 F 78 20 122/73 91 02/24/20 04:35 02/24/20 04:35 02/24/20 04:35 02/24/20 04:35 02/24/20 04:35 Temperature -Last 24 Hours Temperature 98.7 F Temperature 98.3 F Temperature 98.8 F Temperature 97.7 F - Labs CBC & Chem 7: 02/20/20 04:57 02/23/20 05:15
[2020-02-24] MEDS: SODIUM CHLORIDE 0.9% 50 ML IVPB IV SCH (12:16)
[2020-02-24] MEDS ORDERED: REMDESIVIR 200 MG in SODIUM CHLORIDE 0.9% 250ML 250 ML IV ONE (12:30)
[2020-02-24] MEDS ORDERED: REMDESIVIR 100 MG VIAL IV ONE (12:30)
[2020-02-24] MEDS: traZODone 100 MG TAB PO SCH (21:21)
[2020-02-25] MEDS: METHADONE 5 MG TAB PO SCH ×3 (02:13→18:58)
[2020-02-25] MEDS: methylPREDNISolone Sod Succinate 40 MG/1 ML INJ IV SCH ×3 (06:05→21:18)
[2020-02-25 06:50] LABS: Alanine Aminotransferase 11 units/L (7-56); Albumin 3.6 g/dL (3.9-5)
[2020-02-25 06:51] LABS: Bilirubin,Direct < 0.2 mg/dL (0-0.2)
[2020-02-25] MEDS: BUDESONIDE 0.5 MG/2 ML NEBU IH SCH ×2 (08:59→20:59)
[2020-02-25] MEDS: ARFORMOTEROL 15 MCG/2 ML NEBU IH SCH ×2 (09:00→20:58)
[2020-02-25] MEDS: PARoxetine 10 MG TAB PO SCH (10:12)
[2020-02-25] MEDS: NIFEdipine XL 90 MG TAB PO SCH (10:13)
[2020-02-25] MEDS: MAGIC MOUTHWASH 30ML PO SCH ×3 (10:13→22:14)
[2020-02-25] MEDS: ALPRAZolam 1 MG TAB PO SCH ×2 (10:13→21:18)
[2020-02-25] MEDS: HEPARIN 5,000 UNIT/1 ML VIAL SUB-Q SCH ×2 (10:13→21:21)
[2020-02-25] MEDS: FOLIC ACID 1 MG TAB PO SCH (10:13)
--- NOTE | 2020-02-25 10:38 | Progress Note ---
Assessment and Plan Assessment and plan: -- Acute hypoxemic respiratory failure Current Visit: Yes Status: Acute Plan to address problem: Continue nasal cannula oxygen, titrate O2 sats to more than 90% Evaluation for home oxygen at discharge --COVID-19 pneumonia Current Visit: Yes Status: Acute Plan to address problem: Pneumonia protocol: Chest x-ray, CBC, CMP, IV antibiotic therapy, nebulizer therapy, supplemental oxygen, blood culture. --COVID 19+ patient Current Visit: Yes Status: Acute Plan to address problem: Continue current management per protocol Continue steroids for total 10 days. ID started Remdesivir 200 mg IV q day x 1 followed by 100 mg IV q day x 4 days. We will monitor renal and hepatic function while receiving Does not need to stay for full course if improving, can discharge prior to completing 5 days. Follow inflammatory markers - ferritin, Ddimer, CRP, LDH Proning position if patient is able to maintain Anticoagulation per protocols --COPD (chronic obstructive pulmonary disease) Current Visit: Yes Status: Acute Plan to address problem: Supplemental oxygen, steroid therapy, supportive care. --Nicotine dependence Current Visit: Yes Status: Acute wal Plan to address problem: Smoking cessation counseling, supportive care, behavior change counseling, +15 minutes. Hyperkalemia -Renal function is okay -I put the patient on Kayexalate, will monitor BMP --DVT prophylaxis Current Visit: Yes Status: Acute Plan to address problem: SCD to bilateral lower extremities while in bed, prophylactic anticoagulation. Patient was complaining a lot of cough and is on given Robitussin syrup. Patient is complaining generalized pain and he used to take methadone resumed it. 02/21/2020 -Covid test was positive yesterday, patient is on dexamethasone -Procalcitonin level is negative and I will discontinue the IV antibiotic -Continue with oxygen supplement 02/22/2020 -Patient has Covid and is on dexamethasone -IV antibiotics discontinued because of low procalcitonin level -Patient is still requiring oxygen -Patient has elevated BNP and shortness of breath so we ordered echo but was not done. Give him a dose of IV Lasix. 02/23/2020; Continue current management Patient has history of ADHD, request to resume Adderall/Ritalin Follow inflammatory markers Continue isolation precautions 02/24/2020; patient feels slightly better Complains of dryness of skin, wants double portion of 16/05/19. Ambulatory in the room no shortness of breath Home oxygen evaluation, possible discharge in 1 to 2 days if stable We will closely monitor the patient and adjust the management as needed History Interval history: I have seen and examined the patient at the bedside Patient's chart and medications reviewed Isolation precautions and PPE protocols strictly followed Patient feels slightly better Vital signs noted Hospitalist Physical - Constitutional Vitals: Temp Pulse Resp BP Pulse Ox 98.0 F 75 19 127/88 99 02/25/20 04:48 02/25/20 09:02 02/25/20 09:02 02/25/20 04:48 02/25/20 09:05 General appearance: Present: mild distress, well-nourished - EENT Eyes: Present: PERRL, EOM intact - Neck Neck: Present: supple, normal ROM - Respiratory Respiratory effort: normal Respiratory: bilateral: diminished, rhonchi, negative: rales, wheezing - Cardiovascular Rhythm: regular Heart Sounds: Present: S1 & S2 - Extremities Extremities: no ischemia, No edema - Abdominal General gastrointestinal: soft, non-tender, non-distended, normal bowel sounds - Integumentary Integumentary: Present: clear, warm - Psychiatric Psychiatric: appropriate mood/affect, cooperative - Neurologic Neurologic: CNII-XII intact, moves all extremities Results - Labs CBC & Chem 7: 02/20/20 04:57 02/23/20 05:15 Labs: Laboratory Last Values WBC 6.5 K/mm3 (4.5-11.0) 02/20/20 04:57 RBC 4.61 M/mm3 (3.65-5.03) 02/20/20 04:57 Hgb 10.1 gm/dl (11.8-15.2) L 02/20/20 04:57 Hct 32.3 % (35.5-45.6) L 02/20/20 04:57 MCV 70 fl (84-94) L 02/20/20 04:57 MCH 22 pg (28-32) L 02/20/20 04:57 MCHC 31 % (32-34) L 02/20/20 04:57 RDW 18.4 % (13.2-15.2) H 02/20/20 04:57 Plt Count 295 K/mm3 (140-440) 02/20/20 04:57 Add Manual Diff Complete 02/20/20 04:57 Total Counted 100 02/20/20 04:57 Seg Neutrophils % Linen Keeper 02/20/20 04:57 Seg Neuts % (Manual) 96.0 % (40.0-70.0) H 02/20/20 04:57 Band Neutrophils % 0 % 02/20/20 04:57 Lymphocytes % (Manual) 4.0 % (13.4-35.0) L 02/20/20 04:57 Reactive Lymphs % (Man) 0 % 02/20/20 04:57 Monocytes % (Manual) 0 % (0.0-7.3) 02/20/20 04:57 Eosinophils % (Manual) 0 % (0.0-4.3) 02/20/20 04:57 Basophils % (Manual) 0 % (0.0-1.8) 02/20/20 04:57 Metamyelocytes % 0 % 02/20/20 04:57 Myelocytes % 0 % 02/20/20 04:57 Promyelocytes % 0 % 02/20/20 04:57 Blast Cells % 0 % 02/20/20 04:57 Nucleated RBC % Not Reportable 02/20/20 04:57 Seg Neutrophils # Man 6.2 K/mm3 (1.8-7.7) 02/20/20 04:57 Band Neutrophils # 0.0 K/mm3 02/20/20 04:57 Lymphocytes # (Manual) 0.3 K/mm3 (1.2-5.4) L 02/20/20 04:57 Abs React Lymphs (Man) 0.0 K/mm3 02/20/20 04:57 Monocytes # (Manual) 0.0 K/mm3 (0.0-0.8) 02/20/20 04:57 Eosinophils # (Manual) 0.0 K/mm3 (0.0-0.4) 02/20/20 04:57 Basophils # (Manual) 0.0 K/mm3 (0.0-0.1) 02/20/20 04:57 Metamyelocytes # 0.0 K/mm3 02/20/20 04:57 Myelocytes # 0.0 K/mm3 02/20/20 04:57 Promyelocytes # 0.0 K/mm3 02/20/20 04:57 Blast Cells # 0.0 K/mm3 02/20/20 04:57 WBC Morphology Not Reportable 02/20/20 04:57 Hypersegmented Neuts Not Reportable 02/20/20 04:57 Hyposegmented Neuts Not Reportable 02/20/20 04:57 Hypogranular Neuts Not Reportable 02/20/20 04:57 Smudge Cells Not Reportable 02/20/20 04:57 Toxic Granulation Not Reportable 02/20/20 04:57 Toxic Vacuolation Not Reportable 02/20/20 04:57 Dohle Bodies Not Reportable 02/20/20 04:57 Pelger-Huet Anomaly Not Reportable 02/20/20 04:57 Reshma Rods Not Reportable 02/20/20 04:57 Platelet Estimate Consistent w auto 02/20/20 04:57 Clumped Platelets Not Reportable 02/20/20 04:57 Plt Clumps, EDTA Not Reportable 02/20/20 04:57 Large Platelets Not Reportable 02/20/20 04:57 Giant Platelets Not Reportable 02/20/20 04:57 Platelet Satelliting Not Reportable 02/20/20 04:57 Plt Morphology Comment Not Reportable 02/20/20 04:57 RBC Morphology Not Reportable 02/20/20 04:57 Dimorphic RBCs Not Reportable 02/20/20 04:57 Polychromasia Not Reportable 02/20/20 04:57 Hypochromasia 1+ 02/20/20 04:57 Poikilocytosis Few 02/20/20 04:57 Anisocytosis Not Reportable 02/20/20 04:57 Microcytosis Not Reportable 02/20/20 04:57 Macrocytosis Not Reportable 02/20/20 04:57 Spherocytes Few 02/20/20 04:57 Pappenheimer Bodies Not Reportable 02/20/20 04:57 Sickle Cells Not Reportable 02/20/20 04:57 Target Cells Not Reportable 02/20/20 04:57 Tear Drop Cells Not Reportable 02/20/20 04:57 Ovalocytes Not Reportable 02/20/20 04:57 Helmet Cells Not Reportable 02/20/20 04:57 Pfeiffer-[place] Bodies Not Reportable 02/20/20 04:57 [place] Rings Not Reportable 02/20/20 04:57 [place] Cells Not Reportable 02/20/20 04:57 Bite Cells Not Reportable 02/20/20 04:57 Crenated Cell Not Reportable 02/20/20 04:57 Elliptocytes Few 02/20/20 04:57 Acanthocytes (Spur) Not Reportable 02/20/20 04:57 Rouleaux Not Reportable 02/20/20 04:57 Hemoglobin C Crystals Not Reportable 02/20/20 04:57 Schistocytes Few 02/20/20 04:57 Malaria parasites Not Reportable 02/20/20 04:57 Ricky Bodies Not Reportable 02/20/20 04:57 Hem Pathologist Commnt No 02/20/20 04:57 D-Dimer 317.92 ng/mlDDU (0-234) H 02/19/20 18:00 Sodium 139 mmol/L (137-145) 02/23/20 05:15 Potassium 4.7 mmol/L (3.6-5.0) 02/23/20 05:15 Chloride 102.2 mmol/L (98-107) 02/23/20 05:15 Carbon Dioxide 25 mmol/L (22-30) 02/23/20 05:15 Anion Gap 17 mmol/L 02/23/20 05:15 BUN 35 mg/dL (9-20) H 02/23/20 05:15 Creatinine 1.1 mg/dL (0.8-1.3) 02/23/20 05:15 Estimated GFR > 60 ml/min 02/23/20 05:15 BUN/Creatinine Ratio 32 % 02/23/20 05:15 Glucose 108 mg/dL (75-100) H 02/23/20 05:15 Calcium 9.2 mg/dL (8.4-10.2) 02/23/20 05:15 Ferritin 23.7 ng/mL (30.0-300.0) L 02/19/20 17:59 Total Bilirubin 0.20 mg/dL (0.1-1.2) 02/25/20 05:39 Direct Bilirubin < 0.2 mg/dL (0-0.2) 02/25/20 05:39 Indirect Bilirubin 0.0 mg/dL 02/25/20 05:39 AST 13 units/L (5-40) 02/25/20 05:39 ALT 11 units/L (7-56) 02/25/20 05:39 Alkaline Phosphatase 72 units/L (35-129) 02/25/20 05:39 Lactate Dehydrogenase 194 units/L (91-180) H 02/19/20 18:00 C-Reactive Protein 3.00 mg/dL (0.00-1.30) H 02/19/20 18:00 NT-Pro-B Natriuret Pep 1162 pg/mL (0-900) H 02/19/20 15:51 Total Protein 6.3 g/dL (6.3-8.2) 02/25/20 05:39 Albumin 3.6 g/dL (3.9-5) L 02/25/20 05:39 Albumin/Globulin Ratio 1.3 % 02/25/20 05:39 Procalcitonin < 0.05 ng/mL (<0.15) 02/19/20 18:00 Coronavirus (PCR) Positive (Negative) A 02/20/20 10:27 Cheng/IV: Voiding Method Toilet IV Catheter Type [Left Forearm INT / Saline Lock ] Active Medications - Current Medications Current Medications: Generic Name Dose Route Start Last Admin Trade Name Freq PRN Reason Stop Dose Admin Acetaminophen 650 mg 02/19/20 17:55 02/20/20 08:26 Tylenol PO 650 mg Q4H PRN Administration Pain MILD(1-3)/Fever >100.5/PEREZ Albuterol 2.5 mg 02/19/20 17:55 02/21/20 04:34 Proventil IH 2.5 mg Q4HRT PRN Administration Shortness Of Breath Alprazolam 1 mg 02/19/20 22:00 02/25/20 10:13 Xanax PO 1 mg BID ALEXANDRA Administration Arformoterol Tartrate 15 mcg 02/24/20 08:00 02/25/20 09:00 Brovana Nebu IH 15 mcg Q12HRT ALEXANDRA Administration Budesonide 0.5 mg 02/24/20 08:00 02/25/20 08:59 Pulmicort IH 0.5 mg Q12HRT ALEXANDRA Administration Folic Acid 1 mg 02/20/20 10:00 02/25/20 10:13 Folvite PO 1 mg DAILY ALEXANDRA Administration Guaifenesin 20 ml 02/20/20 09:15 02/21/20 17:51 Guaifenesin Dm Syrup PO 20 ml Q4H PRN Administration Cough Heparin Sodium (Porcine) 5,000 unit 02/19/20 22:00 02/25/20 10:13 Heparin SUB-Q 5,000 unit Q12HR ALEXANDRA Administration REMDESIVIR 100 mg/ Sodium 250 mls @ 500 mls/hr 02/25/20 21:00 Chloride IV 02/28/20 21:29 Q24HR@2100 ALEXANDRA Lidocaine HCl 15 ml 02/21/20 14:00 02/25/20 10:13 Magic Mouthwash PO 15 ml TID ALEXANDRA Administration Methadone HCl 20 mg 02/20/20 10:00 02/25/20 10:17 Dolophine PO 20 mg Q8H ALEXANDRA Administration Methylprednisolone Sodium Succinate 40 mg 02/19/20 22:00 02/25/20 06:05 Solu-Medrol IV 40 mg Q8HR ALEXANDRA Administration Nifedipine 90 mg 02/20/20 10:00 02/25/20 10:13 Procardia Xl PO 90 mg QDAY ALEXANDRA Administration Ondansetron HCl 4 mg 02/19/20 17:55 Zofran IV Q8H PRN Nausea And Vomiting Oxycodone/Acetaminophen 2 tab 02/19/20 17:58 02/24/20 09:56 Percocet 5/325 PO 2 tab Q6H PRN Administration Pain, Moderate (4-6) Paroxetine HCl 10 mg 02/20/20 10:00 02/25/20 10:12 Paxil PO 10 mg DAILY ALEXANDRA Administration Sodium Chloride 10 ml 02/19/20 22:00 02/25/20 10:19 Sodium Chloride Flush Syringe 10 Ml IV 10 ml BID ALEXANDRA Administration Sodium Chloride 10 ml 02/19/20 17:55 02/22/20 05:38 Sodium Chloride Flush Syringe 10 Ml IV 10 ml PRN PRN Administration LINE FLUSH Sodium Chloride 50 ml 02/24/20 13:00 02/24/20 12:16 Nacl 0.9% IV 02/28/20 21:01 50 ml Q24HR@2100 ALEXANDRA Administration Trazodone HCl 100 mg 02/19/20 22:00 02/24/20 21:21 Desyrel PO 100 mg QHS ALEXANDRA Administration
--- NOTE | 2020-02-25 14:43 | Progress Note ---
Assessment and Plan Cultures: COVID-19: positive A/P: 55-year-old male past medical history arthritis, hypertension, COPD, DVT, nicotine dependence admitted with COVID-19 pneumonia #COVID-19 pneumonia: Candidate for remdesivir, would start. #Acute hypoxemic respiratory failure: Likely secondary to COVID-19 infection. Currently on 2 L nasal cannula #COPD: Currently receiving steroids #History of DVT: Anticoagulation Recs: -Continue steroids for 10 days. -Start Remdesivir 200 mg IV q day x 1 followed by 100 mg IV q day x 4 days. Monitor renal and hepatic function while receiving -Does not need to stay for full course if improving, can discharge prior to completing 5 days. -Obtain daily inflammatory markers - ferritin, Ddimer, CRP, LDH -Proning as able -Anticoagulation per hospital protocol Thank you for the consult, we will continue to follow. Mello Boyd MD [facility] ([facility]) O: [phone] F: [phone] Subjective Date of service: 02/25/20 Interval history: Afebrile, no acute change. Currently on 2 L nasal cannula. Objective - Exam Narrative Exam: Physical exam deferred due to PPE conservation strategy. Please refer to primary team's note. - Constitutional Vitals: Vital Signs Temp Pulse Resp BP Pulse Ox 98.0 F 75 19 127/88 99 02/25/20 04:48 02/25/20 09:02 02/25/20 09:02 02/25/20 04:48 02/25/20 09:05 Temperature -Last 24 Hours Temperature 98.0 F Temperature 98.0 F Temperature 97.4 F - Labs CBC & Chem 7: 02/20/20 04:57 02/23/20 05:15 Labs: Abnormal lab results 02/25/20 Range/Units 05:39 Albumin 3.6 L (3.9-5) g/dL
[2020-02-25] MEDS: traZODone 100 MG TAB PO SCH (21:18)
[2020-02-25] MEDS: SODIUM CHLORIDE 0.9% 50 ML IVPB IV SCH (21:19)
[2020-02-25] MEDS: REMDESIVIR 100 MG in SODIUM CHLORIDE 0.9% 250ML 250 ML IV SCH (21:19)
[2020-02-26] MEDS: METHADONE 5 MG TAB PO SCH ×4 (01:36→20:07)
[2020-02-26] MEDS: methylPREDNISolone Sod Succinate 40 MG/1 ML INJ IV SCH ×3 (06:11→22:04)
[2020-02-26 07:21] LABS: C-Reactive Protein 0.3 mg/dL (0.00-1.30)
[2020-02-26] MEDS: ARFORMOTEROL 15 MCG/2 ML NEBU IH SCH ×2 (08:09→20:30)
[2020-02-26] MEDS: BUDESONIDE 0.5 MG/2 ML NEBU IH SCH ×2 (08:09→20:35)
[2020-02-26] MEDS: MAGIC MOUTHWASH 30ML PO SCH ×3 (08:56→22:03)
[2020-02-26] MEDS: ALPRAZolam 1 MG TAB PO SCH ×2 (11:06→22:04)
[2020-02-26] MEDS: NIFEdipine XL 90 MG TAB PO SCH (11:06)
[2020-02-26] MEDS: FOLIC ACID 1 MG TAB PO SCH (11:06)
[2020-02-26] MEDS: PARoxetine 10 MG TAB PO SCH (11:07)
[2020-02-26] MEDS: HEPARIN 5,000 UNIT/1 ML VIAL SUB-Q SCH ×2 (11:07→22:05)
--- NOTE | 2020-02-26 13:51 | Progress Note ---
Assessment and Plan Cultures: COVID-19: positive A/P: 55-year-old male past medical history arthritis, hypertension, COPD, DVT, nicotine dependence admitted with COVID-19 pneumonia #COVID-19 pneumonia: Candidate for remdesivir, would start. #Acute hypoxemic respiratory failure: Likely secondary to COVID-19 infection. Currently on 2 L nasal cannula #COPD: Currently receiving steroids #History of DVT: Anticoagulation Recs: -Continue steroids for 10 days. -Start Remdesivir 200 mg IV q day x 1 followed by 100 mg IV q day x 4 days. Monitor renal and hepatic function while receiving -Does not need to stay for full course if improving, can discharge prior to completing 5 days. -Obtain daily inflammatory markers - ferritin, Ddimer, CRP, LDH -Proning as able -Anticoagulation per hospital protocol Thank you for the consult, we will continue to follow. Mello Boyd MD [facility] ([facility]) O: [phone] F: [phone] Subjective Date of service: 02/26/20 Interval history: Afebrile, normal white count. Currently on 2 L nasal cannula. Objective - Exam Narrative Exam: Physical exam deferred due to PPE conservation strategy. Please refer to primary team's note. - Constitutional Vitals: Vital Signs Temp Pulse Resp BP Pulse Ox 97.7 F 71 20 152/94 98 02/26/20 12:05 02/26/20 12:05 02/26/20 12:05 02/26/20 12:05 02/26/20 12:05 Temperature -Last 24 Hours Temperature 97.7 F Temperature 97.7 F - Labs CBC & Chem 7: 02/20/20 04:57 02/23/20 05:15
--- NOTE | 2020-02-26 19:03 | Progress Note ---
Assessment and Plan Assessment and plan: --COVID-19 pneumonia Current Visit: Yes Status: Acute Plan to address problem: Pneumonia protocol: Chest x-ray, CBC, CMP, IV antibiotic therapy, nebulizer therapy, supplemental oxygen, blood culture. --COVID 19+ patient Current Visit: Yes Status: Acute Plan to address problem: Continue current management per protocol Continue steroids for total 10 days. ID started Remdesivir 200 mg IV q day x 1 followed by 100 mg IV q day x 4 days. We will monitor renal and hepatic function while receiving Does not need to stay for full course if improving, can discharge prior to completing 5 days. Follow inflammatory markers - ferritin, Ddimer, CRP, LDH Proning position if patient is able to maintain Anticoagulation per protocols -- Acute hypoxemic respiratory failure Current Visit: Yes Status: Acute Plan to address problem: Continue nasal cannula oxygen, titrate O2 sats to more than 90% Evaluation for home oxygen at discharge --COPD (chronic obstructive pulmonary disease) Current Visit: Yes Status: Acute Plan to address problem: Supplemental oxygen, steroid therapy, supportive care. --Nicotine dependence Current Visit: Yes Status: Acute wal Plan to address problem: Smoking cessation counseling, supportive care, behavior change counseling, +15 minutes. Hyperkalemia -Renal function is okay -I put the patient on Kayexalate, will monitor BMP --DVT prophylaxis Current Visit: Yes Status: Acute Plan to address problem: SCD to bilateral lower extremities while in bed, prophylactic anticoagulation. Patient was complaining a lot of cough and is on given Robitussin syrup. Patient is complaining generalized pain and he used to take methadone resumed it. 02/21/2020 -Covid test was positive yesterday, patient is on dexamethasone -Procalcitonin level is negative and I will discontinue the IV antibiotic -Continue with oxygen supplement 02/22/2020 -Patient has Covid and is on dexamethasone -IV antibiotics discontinued because of low procalcitonin level -Patient is still requiring oxygen -Patient has elevated BNP and shortness of breath so we ordered echo but was not done. Give him a dose of IV Lasix. 02/23/2020; Continue current management Patient has history of ADHD, request to resume Adderall/Ritalin Follow inflammatory markers Continue isolation precautions 02/24/2020; patient feels slightly better Complains of dryness of skin, wants double portion of 02/25/20. Ambulatory in the room no shortness of breath Home oxygen evaluation, possible discharge in 1 to 2 days if stable 02/26/2020; patient feels better no new complaints Will check home oxygen evaluation, possible discharge tomorrow if stable History Interval history: I have seen and examined the patient at the bedside this morning Patient's chart and medications reviewed Isolation precautions and PPE protocols strictly followed Vital signs noted Complaints of some upper respiratory symptoms Hospitalist Physical - Constitutional Vitals: Temp Pulse Resp BP Pulse Ox 98.3 F 70 20 152/88 95 02/26/20 15:56 02/26/20 15:56 02/26/20 15:56 02/26/20 15:56 02/26/20 15:56 General appearance: Present: mild distress, well-nourished - EENT Eyes: Present: PERRL, EOM intact - Neck Neck: Present: supple, normal ROM - Respiratory Respiratory effort: normal Respiratory: bilateral: diminished, negative: rales, rhonchi, wheezing - Cardiovascular Rhythm: regular Heart Sounds: Present: S1 & S2 - Extremities Extremities: no ischemia, No edema - Abdominal General gastrointestinal: soft, non-tender, non-distended - Integumentary Integumentary: Present: clear, warm - Psychiatric Psychiatric: appropriate mood/affect, cooperative - Neurologic Neurologic: CNII-XII intact, moves all extremities Results - Labs CBC & Chem 7: 02/20/20 04:57 02/23/20 05:15 Labs: Laboratory Last Values WBC 6.5 K/mm3 (4.5-11.0) 02/20/20 04:57 RBC 4.61 M/mm3 (3.65-5.03) 02/20/20 04:57 Hgb 10.1 gm/dl (11.8-15.2) L 02/20/20 04:57 Hct 32.3 % (35.5-45.6) L 02/20/20 04:57 MCV 70 fl (84-94) L 02/20/20 04:57 MCH 22 pg (28-32) L 02/20/20 04:57 MCHC 31 % (32-34) L 02/20/20 04:57 RDW 18.4 % (13.2-15.2) H 02/20/20 04:57 Plt Count 295 K/mm3 (140-440) 02/20/20 04:57 Add Manual Diff Complete 02/20/20 04:57 Total Counted 100 02/20/20 04:57 Seg Neutrophils % [employer] 02/20/20 04:57 Seg Neuts % (Manual) 96.0 % (40.0-70.0) H 02/20/20 04:57 Band Neutrophils % 0 % 02/20/20 04:57 Lymphocytes % (Manual) 4.0 % (13.4-35.0) L 02/20/20 04:57 Reactive Lymphs % (Man) 0 % 02/20/20 04:57 Monocytes % (Manual) 0 % (0.0-7.3) 02/20/20 04:57 Eosinophils % (Manual) 0 % (0.0-4.3) 02/20/20 04:57 Basophils % (Manual) 0 % (0.0-1.8) 02/20/20 04:57 Metamyelocytes % 0 % 02/20/20 04:57 Myelocytes % 0 % 02/20/20 04:57 Promyelocytes % 0 % 02/20/20 04:57 Blast Cells % 0 % 02/20/20 04:57 Nucleated RBC % Not Reportable 02/20/20 04:57 Seg Neutrophils # Man 6.2 K/mm3 (1.8-7.7) 02/20/20 04:57 Band Neutrophils # 0.0 K/mm3 02/20/20 04:57 Lymphocytes # (Manual) 0.3 K/mm3 (1.2-5.4) L 02/20/20 04:57 Abs React Lymphs (Man) 0.0 K/mm3 02/20/20 04:57 Monocytes # (Manual) 0.0 K/mm3 (0.0-0.8) 02/20/20 04:57 Eosinophils # (Manual) 0.0 K/mm3 (0.0-0.4) 02/20/20 04:57 Basophils # (Manual) 0.0 K/mm3 (0.0-0.1) 02/20/20 04:57 Metamyelocytes # 0.0 K/mm3 02/20/20 04:57 Myelocytes # 0.0 K/mm3 02/20/20 04:57 Promyelocytes # 0.0 K/mm3 02/20/20 04:57 Blast Cells # 0.0 K/mm3 02/20/20 04:57 WBC Morphology Not Reportable 02/20/20 04:57 Hypersegmented Neuts Not Reportable 02/20/20 04:57 Hyposegmented Neuts Not Reportable 02/20/20 04:57 Hypogranular Neuts Not Reportable 02/20/20 04:57 Smudge Cells Not Reportable 02/20/20 04:57 Toxic Granulation Not Reportable 02/20/20 04:57 Toxic Vacuolation Not Reportable 02/20/20 04:57 Dohle Bodies Not Reportable 02/20/20 04:57 Pelger-Huet Anomaly Not Reportable 02/20/20 04:57 Reshma Rods Not Reportable 02/20/20 04:57 Platelet Estimate Consistent w auto 02/20/20 04:57 Clumped Platelets Not Reportable 02/20/20 04:57 Plt Clumps, EDTA Not Reportable 02/20/20 04:57 Large Platelets Not Reportable 02/20/20 04:57 Giant Platelets Not Reportable 02/20/20 04:57 Platelet Satelliting Not Reportable 02/20/20 04:57 Plt Morphology Comment Not Reportable 02/20/20 04:57 RBC Morphology Not Reportable 02/20/20 04:57 Dimorphic RBCs Not Reportable 02/20/20 04:57 Polychromasia Not Reportable 02/20/20 04:57 Hypochromasia 1+ 02/20/20 04:57 Poikilocytosis Few 02/20/20 04:57 Anisocytosis Not Reportable 02/20/20 04:57 Microcytosis Not Reportable 02/20/20 04:57 Macrocytosis Not Reportable 02/20/20 04:57 Spherocytes Few 02/20/20 04:57 Pappenheimer Bodies Not Reportable 02/20/20 04:57 Sickle Cells Not Reportable 02/20/20 04:57 Target Cells Not Reportable 02/20/20 04:57 Tear Drop Cells Not Reportable 02/20/20 04:57 Ovalocytes Not Reportable 02/20/20 04:57 Helmet Cells Not Reportable 02/20/20 04:57 [place] Bodies Not Reportable 02/20/20 04:57 [place] Rings Not Reportable 02/20/20 04:57 Christa Cells Not Reportable 02/20/20 04:57 Bite Cells Not Reportable 02/20/20 04:57 Crenated Cell Not Reportable 02/20/20 04:57 Elliptocytes Few 02/20/20 04:57 Acanthocytes (Spur) Not Reportable 02/20/20 04:57 Rouleaux Not Reportable 02/20/20 04:57 Hemoglobin C Crystals Not Reportable 02/20/20 04:57 Schistocytes Few 02/20/20 04:57 Malaria parasites Not Reportable 02/20/20 04:57 Ricky Bodies Not Reportable 02/20/20 04:57 Hem Pathologist Commnt No 02/20/20 04:57 D-Dimer < 135.00 ng/mlDDU (0-234) 02/26/20 06:26 Sodium 139 mmol/L (137-145) 02/23/20 05:15 Potassium 4.7 mmol/L (3.6-5.0) 02/23/20 05:15 Chloride 102.2 mmol/L (98-107) 02/23/20 05:15 Carbon Dioxide 25 mmol/L (22-30) 02/23/20 05:15 Anion Gap 17 mmol/L 02/23/20 05:15 BUN 35 mg/dL (9-20) H 02/23/20 05:15 Creatinine 1.1 mg/dL (0.8-1.3) 02/23/20 05:15 Estimated GFR > 60 ml/min 02/23/20 05:15 BUN/Creatinine Ratio 32 % 02/23/20 05:15 Glucose 108 mg/dL (75-100) H 02/23/20 05:15 POC Glucose 96 mg/dL (70-105) 02/25/20 13:29 Calcium 9.2 mg/dL (8.4-10.2) 02/23/20 05:15 Ferritin 42.9 ng/mL (30.0-300.0) 02/26/20 06:26 Total Bilirubin 0.20 mg/dL (0.1-1.2) 02/25/20 05:39 Direct Bilirubin < 0.2 mg/dL (0-0.2) 02/25/20 05:39 Indirect Bilirubin 0.0 mg/dL 02/25/20 05:39 AST 13 units/L (5-40) 02/25/20 05:39 ALT 11 units/L (7-56) 02/25/20 05:39 Alkaline Phosphatase 72 units/L (35-129) 02/25/20 05:39 Lactate Dehydrogenase 146 units/L (91-180) 02/26/20 06:26 C-Reactive Protein 0.30 mg/dL (0.00-1.30) 02/26/20 06:26 NT-Pro-B Natriuret Pep 1162 pg/mL (0-900) H 02/19/20 15:51 Total Protein 6.3 g/dL (6.3-8.2) 02/25/20 05:39 Albumin 3.6 g/dL (3.9-5) L 02/25/20 05:39 Albumin/Globulin Ratio 1.3 % 02/25/20 05:39 Procalcitonin < 0.05 ng/mL (<0.15) 02/19/20 18:00 Coronavirus (PCR) Positive (Negative) A 02/20/20 10:27 Cheng/IV: Voiding Method Toilet IV Catheter Type [Left Forearm INT / Saline Lock ] Active Medications - Current Medications Current Medications: Generic Name Dose Route Start Last Admin Trade Name Freq PRN Reason Stop Dose Admin Acetaminophen 650 mg 02/19/20 17:55 02/20/20 08:26 Tylenol PO 650 mg Q4H PRN Administration Pain MILD(1-3)/Fever >100.5/PEREZ Albuterol 2.5 mg 02/19/20 17:55 02/21/20 04:34 Proventil IH 2.5 mg Q4HRT PRN Administration Shortness Of Breath Alprazolam 1 mg 02/19/20 22:00 02/26/20 11:06 Xanax PO 1 mg BID ALEXANDRA Administration Arformoterol Tartrate 15 mcg 02/24/20 08:00 02/26/20 08:09 Brovana Nebu IH 15 mcg Q12HRT ALEXANDRA Administration Budesonide 0.5 mg 02/24/20 08:00 02/26/20 08:09 Pulmicort IH 0.5 mg Q12HRT ALEXANDRA Administration Cetirizine HCl 10 mg 02/26/20 17:30 Cetirizine PO DAILY ALEXANDRA Folic Acid 1 mg 02/20/20 10:00 02/26/20 11:06 Folvite PO 1 mg DAILY ALEXANDRA Administration Guaifenesin 20 ml 02/20/20 09:15 02/21/20 17:51 Guaifenesin Dm Syrup PO 20 ml Q4H PRN Administration Cough Heparin Sodium (Porcine) 5,000 unit 02/19/20 22:00 02/26/20 11:07 Heparin SUB-Q 5,000 unit Q12HR ALEXANDRA Administration REMDESIVIR 100 mg/ Sodium 250 mls @ 500 mls/hr 02/25/20 21:00 02/25/20 21:19 Chloride IV 02/28/20 21:29 500 mls/hr Q24HR@2100 ALEXANDRA Administration Lidocaine HCl 15 ml 02/21/20 14:00 02/26/20 15:54 Magic Mouthwash PO 15 ml TID ALEXANDRA Administration Methadone HCl 20 mg 02/20/20 10:00 02/26/20 11:12 Dolophine PO 20 mg Q8H ALEXANDRA Administration Methylprednisolone Sodium Succinate 40 mg 02/19/20 22:00 02/26/20 15:53 Solu-Medrol IV 40 mg Q8HR ALEXANDRA Administration Nifedipine 90 mg 02/20/20 10:00 02/26/20 11:06 Procardia Xl PO 90 mg QDAY ALEXANDRA Administration Ondansetron HCl 4 mg 02/19/20 17:55 Zofran IV Q8H PRN Nausea And Vomiting Oxycodone/Acetaminophen 2 tab 02/19/20 17:58 02/24/20 09:56 Percocet 5/325 PO 2 tab Q6H PRN Administration Pain, Moderate (4-6) Paroxetine HCl 10 mg 02/20/20 10:00 02/26/20 11:07 Paxil PO 10 mg DAILY ALEXANDRA Administration Sodium Chloride 10 ml 02/19/20 22:00 02/26/20 11:08 Sodium Chloride Flush Syringe 10 Ml IV 10 ml BID ALEXANDRA Administration Sodium Chloride 10 ml 02/19/20 17:55 02/22/20 05:38 Sodium Chloride Flush Syringe 10 Ml IV 10 ml PRN PRN Administration LINE FLUSH Sodium Chloride 50 ml 02/24/20 13:00 02/25/20 21:19 Nacl 0.9% IV 02/28/20 21:01 50 ml Q24HR@2100 ALEXANDRA Administration Trazodone HCl 100 mg 02/19/20 22:00 02/25/20 21:18 Desyrel PO 100 mg QHS ALEXANDRA Administration Nutrition/Malnutrition Assess - Dietary Evaluation Nutrition/Malnutrition Findings: Nutrition Notes Start: 02/26/20 11:42 Freq: Status: Active Protocol: Document 02/26/20 11:42 AB (Rec: 02/26/20 12:50 AB [id number]) Co-Sign 02/26/20 11:42 MK Nutrition Notes Need for Assessment generated from: LOS Initial or Follow up Brief Note Current Diagnosis COPD Other Pertinent Diagnosis acute respiratory failure, colitis, anemia, pneumonia, COVID (+) Current Diet Regular Subjective/Other Information Pt is alert and responsive. Pt is consuming 100% of meals. No further questions or concerns from pt. Nutrition Intervention Revisit per MD consult or patient Sign Off request:
[2020-02-26] MEDS: CETIRIZINE 10 MG TAB PO SCH (20:07)
[2020-02-26] MEDS: SODIUM CHLORIDE 0.9% 50 ML IVPB IV SCH (20:40)
[2020-02-26] MEDS: REMDESIVIR 100 MG in SODIUM CHLORIDE 0.9% 250ML 250 ML IV SCH (20:40)
[2020-02-26] MEDS: traZODone 100 MG TAB PO SCH (22:04)
[2020-02-27] MEDS: METHADONE 5 MG TAB PO SCH ×3 (02:57→19:53)
[2020-02-27] MEDS: methylPREDNISolone Sod Succinate 40 MG/1 ML INJ IV SCH ×3 (05:44→22:03)
[2020-02-27 06:50] LABS: Alanine Aminotransferase 10 units/L (7-56); Albumin 3.6 g/dL (3.9-5); BUN/Creatinine Ratio 31; Blood Urea Nitrogen 46 mg/dL (9-20); Calcium 9.1 mg/dL (8.4-10.2); Hemolysis Index 23
[2020-02-27 06:54] LABS: Bilirubin,Direct < 0.2 mg/dL (0-0.2)
[2020-02-27] MEDS: ARFORMOTEROL 15 MCG/2 ML NEBU IH SCH ×2 (08:08→20:38)
[2020-02-27] MEDS: BUDESONIDE 0.5 MG/2 ML NEBU IH SCH ×2 (08:08→20:38)
[2020-02-27] MEDS: MAGIC MOUTHWASH 30ML PO SCH ×3 (09:34→20:00)
[2020-02-27] MEDS ORDERED: SODIUM POLYSTYRENE 15 GM/60 ML ORAL LIQD PO NR (10:00)
[2020-02-27] MEDS ORDERED: SODIUM CHLORIDE 0.9% 1000 ML 1,000 ML IV SCH (10:00)
[2020-02-27] MEDS: CETIRIZINE 10 MG TAB PO SCH (10:54)
[2020-02-27] MEDS: PARoxetine 10 MG TAB PO SCH (10:54)
[2020-02-27] MEDS: FOLIC ACID 1 MG TAB PO SCH (10:56)
[2020-02-27] MEDS: NIFEdipine XL 90 MG TAB PO SCH (10:56)
[2020-02-27] MEDS: ALPRAZolam 1 MG TAB PO SCH ×2 (10:57→22:04)
[2020-02-27] MEDS: HEPARIN 5,000 UNIT/1 ML VIAL SUB-Q SCH ×2 (10:57→22:04)
--- NOTE | 2020-02-27 12:07 | Progress Note ---
Assessment and Plan Cultures: COVID-19: positive A/P: 55-year-old male past medical history arthritis, hypertension, COPD, DVT, nicotine dependence admitted with COVID-19 pneumonia #COVID-19 pneumonia: Completed remdesivir #Acute hypoxemic respiratory failure: Likely secondary to COVID-19 infection. Currently on 2 L nasal cannula #COPD: Currently receiving steroids #History of DVT: Anticoagulation Recs: -Continue steroids for 10 days. -Start Remdesivir 200 mg IV q day x 1 followed by 100 mg IV q day x 4 days. Monitor renal and hepatic function while receiving. D4 of 5. -Does not need to stay for full course if improving, can discharge prior to completing 5 days. -Obtain daily inflammatory markers - ferritin, Ddimer, CRP, LDH -Proning as able -Anticoagulation per hospital protocol Dr. Barillas taking over tomorrow Thank you for the consult, we will continue to follow. Mello Boyd MD [facility] O: [phone] F: [phone] Subjective Date of service: 02/27/20 Interval history: Afebrile, normal white count. No acute changes. Currently on 2 L nasal cannula. Objective - Exam Narrative Exam: Physical exam deferred due to PPE conservation strategy. Please refer to primary team's note. - Constitutional Vitals: Vital Signs Temp Pulse Resp BP Pulse Ox 98.1 F 65 15 136/86 96 02/27/20 05:40 02/27/20 05:40 02/27/20 05:40 02/27/20 05:40 02/27/20 05:40 Temperature -Last 24 Hours Temperature 98.1 F Temperature 97.8 F Temperature 98.3 F - Labs CBC & Chem 7: 02/20/20 04:57 02/27/20 05:27 Labs: Abnormal lab results 02/27/20 Range/Units 05:27 Potassium 5.6 H (3.6-5.0) mmol/L BUN 46 H (9-20) mg/dL Creatinine 1.5 H (0.8-1.3) mg/dL Glucose 116 H (75-100) mg/dL Total Protein 5.9 L (6.3-8.2) g/dL Albumin 3.6 L (3.9-5) g/dL
--- NOTE | 2020-02-27 17:35 | Progress Note ---
Assessment and Plan Assessment and plan: --Acute kidney injury; Current Visit: Yes Status: Acute . Plan to address problem: Vasomotor nephropathy, dehydration Gentle hydration, monitor renal function, avoid nephrotoxin --Hyperkalemia; K5.6 Current Visit: Yes Status: Acute . Plan to address problem: I will treat with Kayexalate Closely monitor electrolytes --COVID-19 pneumonia Current Visit: Yes Status: Acute Plan to address problem: Pneumonia protocol: --COVID 19 positive patient Current Visit: Yes Status: Acute Plan to address problem: Continue current management per protocol Continue steroids for total 10 days. ID started Remdesivir 200 mg IV q day x 1 followed by 100 mg IV q day x 4 days. We will monitor renal and hepatic function while receiving Follow inflammatory markers - ferritin, Ddimer, CRP, LDH Proning position if patient is able to maintain Anticoagulation per protocols -- Acute hypoxemic respiratory failure Current Visit: Yes Status: Acute Plan to address problem: Continue nasal cannula oxygen, titrate O2 sats to more than 90% Evaluation for home oxygen at discharge --COPD (chronic obstructive pulmonary disease) Current Visit: Yes Status: Acute Plan to address problem: Supplemental oxygen, steroid therapy, supportive care. --Nicotine dependence Current Visit: Yes Status: Acute wal Plan to address problem: Smoking cessation counseling, supportive care, Nicotine patch as needed --DVT prophylaxis Current Visit: Yes Status: Acute Plan to address problem: SCD to bilateral lower extremities while in bed, prophylactic anticoagulation. Patient was complaining a lot of cough and is on given Robitussin syrup. Patient is complaining generalized pain and he used to take methadone resumed it. 02/21/2020 -Covid test was positive yesterday, patient is on dexamethasone -Procalcitonin level is negative and I will discontinue the IV antibiotic -Continue with oxygen supplement 02/22/2020 -Patient has Covid and is on dexamethasone -IV antibiotics discontinued because of low procalcitonin level -Patient is still requiring oxygen -Patient has elevated BNP and shortness of breath so we ordered echo but was not done. Give him a dose of IV Lasix. 02/23/2020; Continue current management Patient has history of ADHD, request to resume Adderall/Ritalin Follow inflammatory markers Continue isolation precautions 02/24/2020; patient feels slightly better Complains of dryness of skin, wants double portion of 02/25/20. Ambulatory in the room no shortness of breath Home oxygen evaluation, possible discharge in 1 to 2 days if stable 02/26/2020; patient feels better no new complaints Will check home oxygen evaluation, possible discharge tomorrow if stable 02/27/2020; patient had acute kidney injury , hyperkalemia , treated with Kayexalate and IV fluids closely monitor renal function, follow electrolytes Possible discharge home tomorrow if stable Plan of care reviewed with the patient and his nurse History Interval history: I have seen and examined the patient in his room at the bedside Isolation precautions and PPE protocols strictly followed. Patient complains of generalized weakness Mild shortness of breath Vital signs noted Will evaluate for home oxygen Hospitalist Physical - Constitutional Vitals: Temp Pulse Resp BP Pulse Ox 97.6 F 78 18 129/93 97 02/27/20 12:14 02/27/20 12:14 02/27/20 12:14 02/27/20 12:14 02/27/20 12:14 General appearance: Present: mild distress, well-nourished - EENT Eyes: Present: PERRL, EOM intact - Neck Neck: Present: supple, normal ROM - Respiratory Respiratory effort: normal Respiratory: bilateral: diminished, rhonchi, negative: rales, wheezing - Cardiovascular Rhythm: regular Heart Sounds: Present: S1 & S2 - Extremities Extremities: no ischemia, No edema - Abdominal General gastrointestinal: soft, non-tender, non-distended, normal bowel sounds - Integumentary Integumentary: Present: clear, warm - Psychiatric Psychiatric: appropriate mood/affect, cooperative - Neurologic Neurologic: CNII-XII intact, moves all extremities Results - Labs CBC & Chem 7: 02/20/20 04:57 02/27/20 05:27 Labs: Laboratory Last Values WBC 6.5 K/mm3 (4.5-11.0) 02/20/20 04:57 RBC 4.61 M/mm3 (3.65-5.03) 02/20/20 04:57 Hgb 10.1 gm/dl (11.8-15.2) L 02/20/20 04:57 Hct 32.3 % (35.5-45.6) L 02/20/20 04:57 MCV 70 fl (84-94) L 02/20/20 04:57 MCH 22 pg (28-32) L 02/20/20 04:57 MCHC 31 % (32-34) L 02/20/20 04:57 RDW 18.4 % (13.2-15.2) H 02/20/20 04:57 Plt Count 295 K/mm3 (140-440) 02/20/20 04:57 Add Manual Diff Complete 02/20/20 04:57 Total Counted 100 02/20/20 04:57 Seg Neutrophils % Biostatistics Professor 02/20/20 04:57 Seg Neuts % (Manual) 96.0 % (40.0-70.0) H 02/20/20 04:57 Band Neutrophils % 0 % 02/20/20 04:57 Lymphocytes % (Manual) 4.0 % (13.4-35.0) L 02/20/20 04:57 Reactive Lymphs % (Man) 0 % 02/20/20 04:57 Monocytes % (Manual) 0 % (0.0-7.3) 02/20/20 04:57 Eosinophils % (Manual) 0 % (0.0-4.3) 02/20/20 04:57 Basophils % (Manual) 0 % (0.0-1.8) 02/20/20 04:57 Metamyelocytes % 0 % 02/20/20 04:57 Myelocytes % 0 % 02/20/20 04:57 Promyelocytes % 0 % 02/20/20 04:57 Blast Cells % 0 % 02/20/20 04:57 Nucleated RBC % Not Reportable 02/20/20 04:57 Seg Neutrophils # Man 6.2 K/mm3 (1.8-7.7) 02/20/20 04:57 Band Neutrophils # 0.0 K/mm3 02/20/20 04:57 Lymphocytes # (Manual) 0.3 K/mm3 (1.2-5.4) L 02/20/20 04:57 Abs React Lymphs (Man) 0.0 K/mm3 02/20/20 04:57 Monocytes # (Manual) 0.0 K/mm3 (0.0-0.8) 02/20/20 04:57 Eosinophils # (Manual) 0.0 K/mm3 (0.0-0.4) 02/20/20 04:57 Basophils # (Manual) 0.0 K/mm3 (0.0-0.1) 02/20/20 04:57 Metamyelocytes # 0.0 K/mm3 02/20/20 04:57 Myelocytes # 0.0 K/mm3 02/20/20 04:57 Promyelocytes # 0.0 K/mm3 02/20/20 04:57 Blast Cells # 0.0 K/mm3 02/20/20 04:57 WBC Morphology Not Reportable 02/20/20 04:57 Hypersegmented Neuts Not Reportable 02/20/20 04:57 Hyposegmented Neuts Not Reportable 02/20/20 04:57 Hypogranular Neuts Not Reportable 02/20/20 04:57 Smudge Cells Not Reportable 02/20/20 04:57 Toxic Granulation Not Reportable 02/20/20 04:57 Toxic Vacuolation Not Reportable 02/20/20 04:57 Dohle Bodies Not Reportable 02/20/20 04:57 Pelger-Huet Anomaly Not Reportable 02/20/20 04:57 Reshma Rods Not Reportable 02/20/20 04:57 Platelet Estimate Consistent w auto 02/20/20 04:57 Clumped Platelets Not Reportable 02/20/20 04:57 Plt Clumps, EDTA Not Reportable 02/20/20 04:57 Large Platelets Not Reportable 02/20/20 04:57 Giant Platelets Not Reportable 02/20/20 04:57 Platelet Satelliting Not Reportable 02/20/20 04:57 Plt Morphology Comment Not Reportable 02/20/20 04:57 RBC Morphology Not Reportable 02/20/20 04:57 Dimorphic RBCs Not Reportable 02/20/20 04:57 Polychromasia Not Reportable 02/20/20 04:57 Hypochromasia 1+ 02/20/20 04:57 Poikilocytosis Few 02/20/20 04:57 Anisocytosis Not Reportable 02/20/20 04:57 Microcytosis Not Reportable 02/20/20 04:57 Macrocytosis Not Reportable 02/20/20 04:57 Spherocytes Few 02/20/20 04:57 Pappenheimer Bodies Not Reportable 02/20/20 04:57 Sickle Cells Not Reportable 02/20/20 04:57 Target Cells Not Reportable 02/20/20 04:57 Tear Drop Cells Not Reportable 02/20/20 04:57 Ovalocytes Not Reportable 02/20/20 04:57 Helmet Cells Not Reportable 02/20/20 04:57 [place] Bodies Not Reportable 02/20/20 04:57 [place] Rings Not Reportable 02/20/20 04:57 [place] Cells Not Reportable 02/20/20 04:57 Bite Cells Not Reportable 02/20/20 04:57 Crenated Cell Not Reportable 02/20/20 04:57 Elliptocytes Few 02/20/20 04:57 Acanthocytes (Spur) Not Reportable 02/20/20 04:57 Rouleaux Not Reportable 02/20/20 04:57 Hemoglobin C Crystals Not Reportable 02/20/20 04:57 Schistocytes Few 02/20/20 04:57 Malaria parasites Not Reportable 02/20/20 04:57 Ricky Bodies Not Reportable 02/20/20 04:57 Hem Pathologist Commnt No 02/20/20 04:57 D-Dimer < 135.00 ng/mlDDU (0-234) 02/26/20 06:26 Sodium 138 mmol/L (137-145) 02/27/20 05:27 Potassium 5.6 mmol/L (3.6-5.0) H 02/27/20 05:27 Chloride 102.1 mmol/L (98-107) 02/27/20 05:27 Carbon Dioxide 27 mmol/L (22-30) 02/27/20 05:27 Anion Gap 15 mmol/L 02/27/20 05:27 BUN 46 mg/dL (9-20) H 02/27/20 05:27 Creatinine 1.5 mg/dL (0.8-1.3) H 02/27/20 05:27 Estimated GFR 59 ml/min 02/27/20 05:27 BUN/Creatinine Ratio 31 % 02/27/20 05:27 Glucose 116 mg/dL (75-100) H 02/27/20 05:27 POC Glucose 96 mg/dL (70-105) 02/25/20 13:29 Calcium 9.1 mg/dL (8.4-10.2) 02/27/20 05:27 Ferritin 42.9 ng/mL (30.0-300.0) 02/26/20 06:26 Total Bilirubin 0.20 mg/dL (0.1-1.2) 02/27/20 05:27 Direct Bilirubin < 0.2 mg/dL (0-0.2) 02/27/20 05:27 Indirect Bilirubin 0.0 mg/dL 02/27/20 05:27 AST 10 units/L (5-40) 02/27/20 05:27 ALT 10 units/L (7-56) 02/27/20 05:27 Alkaline Phosphatase 74 units/L (35-129) 02/27/20 05:27 Lactate Dehydrogenase 146 units/L (91-180) 02/26/20 06:26 C-Reactive Protein 0.30 mg/dL (0.00-1.30) 02/26/20 06:26 NT-Pro-B Natriuret Pep 1162 pg/mL (0-900) H 02/19/20 15:51 Total Protein 5.9 g/dL (6.3-8.2) L 02/27/20 05:27 Albumin 3.6 g/dL (3.9-5) L 02/27/20 05:27 Albumin/Globulin Ratio 1.6 % 02/27/20 05:27 Procalcitonin < 0.05 ng/mL (<0.15) 02/19/20 18:00 Coronavirus (PCR) Positive (Negative) A 02/20/20 10:27 Cheng/IV: Voiding Method Urinal IV Catheter Type [Left Forearm INT / Saline Lock ] Active Medications - Current Medications Current Medications: Generic Name Dose Route Start Last Admin Trade Name Freq PRN Reason Stop Dose Admin Acetaminophen 650 mg 02/19/20 17:55 02/20/20 08:26 Tylenol PO 650 mg Q4H PRN Administration Pain MILD(1-3)/Fever >100.5/PEREZ Albuterol 2.5 mg 02/19/20 17:55 02/21/20 04:34 Proventil IH 2.5 mg Q4HRT PRN Administration Shortness Of Breath Alprazolam 1 mg 02/19/20 22:00 02/27/20 10:57 Xanax PO 1 mg BID ALEXANDRA Administration Arformoterol Tartrate 15 mcg 02/24/20 08:00 02/27/20 08:08 Brovana Nebu IH 15 mcg Q12HRT ALEXANDRA Administration Budesonide 0.5 mg 02/24/20 08:00 02/27/20 08:08 Pulmicort IH 0.5 mg Q12HRT ALEXANDRA Administration Cetirizine HCl 10 mg 02/26/20 17:30 02/27/20 10:54 Cetirizine PO 10 mg DAILY ALEXANDRA Administration Folic Acid 1 mg 02/20/20 10:00 02/27/20 10:56 Folvite PO 1 mg DAILY ALEXANDRA Administration Guaifenesin 20 ml 02/20/20 09:15 02/21/20 17:51 Guaifenesin Dm Syrup PO 20 ml Q4H PRN Administration Cough Heparin Sodium (Porcine) 5,000 unit 02/19/20 22:00 02/27/20 10:57 Heparin SUB-Q 5,000 unit Q12HR ALEXANDRA Administration REMDESIVIR 100 mg/ Sodium 250 mls @ 500 mls/hr 02/25/20 21:00 02/26/20 20:40 Chloride IV 02/28/20 21:29 500 mls/hr Q24HR@2100 ALEXANDRA Administration Sodium Chloride 1,000 mls @ 100 mls/hr 02/27/20 10:00 02/27/20 10:52 Nacl 0.9% 1000 Ml IV 100 mls/hr DIRECT ALEXANDRA Administration Lidocaine HCl 15 ml 02/21/20 14:00 02/27/20 17:24 Magic Mouthwash PO 15 ml TID ALEXANDRA Administration Methadone HCl 20 mg 02/20/20 10:00 02/27/20 11:03 Dolophine PO 20 mg Q8H ALEXANDRA Administration Methylprednisolone Sodium Succinate 40 mg 02/19/20 22:00 02/27/20 17:24 Solu-Medrol IV 40 mg Q8HR ALEXANDRA Administration Nifedipine 90 mg 02/20/20 10:00 02/27/20 10:56 Procardia Xl PO 90 mg QDAY ALEXANDRA Administration Ondansetron HCl 4 mg 02/19/20 17:55 Zofran IV Q8H PRN Nausea And Vomiting Oxycodone/Acetaminophen 2 tab 02/19/20 17:58 02/24/20 09:56 Percocet 5/325 PO 2 tab Q6H PRN Administration Pain, Moderate (4-6) Paroxetine HCl 10 mg 02/20/20 10:00 02/27/20 10:54 Paxil PO 10 mg DAILY ALEXANDRA Administration Sodium Chloride 10 ml 02/19/20 22:00 02/27/20 11:04 Sodium Chloride Flush Syringe 10 Ml IV 10 ml BID ALEXANDRA Administration Sodium Chloride 10 ml 02/19/20 17:55 02/22/20 05:38 Sodium Chloride Flush Syringe 10 Ml IV 10 ml PRN PRN Administration LINE FLUSH Sodium Chloride 50 ml 02/24/20 13:00 02/26/20 20:40 Nacl 0.9% IV 02/28/20 21:01 50 ml Q24HR@2100 ALEXANDRA Administration Trazodone HCl 100 mg 02/19/20 22:00 02/26/20 22:04 Desyrel PO 100 mg QHS ALEXANDRA Administration Nutrition/Malnutrition Assess - Dietary Evaluation Nutrition/Malnutrition Findings: Nutrition Notes Start: 02/26/20 11:42 Freq: Status: Active Protocol: Document 02/26/20 11:42 AB (Rec: 02/26/20 12:50 AB [id number]) Co-Sign 02/26/20 11:42 MK Nutrition Notes Need for Assessment generated from: LOS Initial or Follow up Brief Note Current Diagnosis COPD Other Pertinent Diagnosis acute respiratory failure, colitis, anemia, pneumonia, COVID (+) Current Diet Regular Subjective/Other Information Pt is alert and responsive. Pt is consuming 100% of meals. No further questions or concerns from pt. Nutrition Intervention Revisit per MD consult or patient Sign Off request:
[2020-02-27] MEDS: REMDESIVIR 100 MG in SODIUM CHLORIDE 0.9% 250ML 250 ML IV SCH (21:00)
[2020-02-27] MEDS: SODIUM CHLORIDE 0.9% 50 ML IVPB IV SCH (21:35)
[2020-02-27] MEDS: traZODone 100 MG TAB PO SCH (22:04)
[2020-02-28] MEDS: METHADONE 5 MG TAB PO SCH ×3 (02:00→17:31)
[2020-02-28] MEDS: methylPREDNISolone Sod Succinate 40 MG/1 ML INJ IV SCH ×3 (06:00→21:31)
[2020-02-28 07:00] LABS: BUN/Creatinine Ratio 34; Blood Urea Nitrogen 47 mg/dL (9-20); Calcium 8.8 mg/dL (8.4-10.2); Hemolysis Index 5
[2020-02-28] MEDS: BUDESONIDE 0.5 MG/2 ML NEBU IH SCH ×2 (09:46→21:06)
[2020-02-28] MEDS: ARFORMOTEROL 15 MCG/2 ML NEBU IH SCH ×2 (09:46→21:07)
[2020-02-28] MEDS: NIFEdipine XL 90 MG TAB PO SCH (10:31)
[2020-02-28] MEDS: HEPARIN 5,000 UNIT/1 ML VIAL SUB-Q SCH ×2 (10:31→21:30)
[2020-02-28] MEDS: FOLIC ACID 1 MG TAB PO SCH (10:31)
[2020-02-28] MEDS: ALPRAZolam 1 MG TAB PO SCH ×2 (10:31→21:31)
[2020-02-28] MEDS: CETIRIZINE 10 MG TAB PO SCH (10:31)
[2020-02-28] MEDS: MAGIC MOUTHWASH 30ML PO SCH ×3 (10:35→21:43)
[2020-02-28] MEDS: PARoxetine 10 MG TAB PO SCH (10:42)
--- NOTE | 2020-02-28 17:46 | Progress Note ---
Assessment and Plan Assessment and plan: --Acute kidney injury; Current Visit: Yes Status: Acute . Plan to address problem: Vasomotor nephropathy, dehydration monitor renal function, avoid nephrotoxin Mild improvement in creatinine 1.7-1.4 Continue gentle hydration, plenty oral fluids --Hyperkalemia; K5.6-4.9 Current Visit: Yes Status: Acute . Plan to address problem: Patient received Kayexalate Potassium normal level --COVID-19 pneumonia Current Visit: Yes Status: Acute Plan to address problem: Pneumonia protocol: --COVID 19 positive patient Current Visit: Yes Status: Acute Plan to address problem: Continue current management per protocol Continue steroids for total 10 days. ID started Remdesivir 200 mg IV q day x 1 followed by 100 mg IV q day x 4 days. We will monitor renal and hepatic function while receiving Follow inflammatory markers - ferritin, Ddimer, CRP, LDH Proning position if patient is able to maintain Anticoagulation per protocols -- Acute hypoxemic respiratory failure Current Visit: Yes Status: Acute Plan to address problem: Continue nasal cannula oxygen, titrate O2 sats to more than 90% Evaluation for home oxygen at discharge --COPD (chronic obstructive pulmonary disease) Current Visit: Yes Status: Acute Plan to address problem: Supplemental oxygen, steroid therapy, supportive care. --Nicotine dependence Current Visit: Yes Status: Acute Plan to address problem: Smoking cessation counseling, supportive care, Nicotine patch as needed --DVT prophylaxis Current Visit: Yes Status: Acute Plan to address problem: SCD to bilateral lower extremities while in bed, prophylactic anticoagulation. Patient was complaining a lot of cough and is on given Robitussin syrup. Patient is complaining generalized pain and he used to take methadone resumed it. 02/21/2020 -Covid test was positive yesterday, patient is on dexamethasone -Procalcitonin level is negative and I will discontinue the IV antibiotic -Continue with oxygen supplement 02/22/2020 -Patient has Covid and is on dexamethasone -IV antibiotics discontinued because of low procalcitonin level -Patient is still requiring oxygen -Patient has elevated BNP and shortness of breath so we ordered echo but was not done. Give him a dose of IV Lasix. 02/23/2020; Continue current management Patient has history of ADHD, request to resume Adderall/Ritalin Follow inflammatory markers Continue isolation precautions 02/24/2020; patient feels slightly better Complains of dryness of skin, wants double portion of 02/25/20. Ambulatory in the room no shortness of breath Home oxygen evaluation, possible discharge in 1 to 2 days if stable 02/26/2020; patient feels better no new complaints Will check home oxygen evaluation, possible discharge tomorrow if stable 02/27/2020; patient had acute kidney injury , hyperkalemia , treated with Kayexalate and IV fluids closely monitor renal function, follow electrolytes Possible discharge home tomorrow if stable 02/28/2020; renal function slightly improved creatinine improved from 1.7-1.4 I will continue gentle hydration plenty oral fluids, monitor renal function Home oxygen evaluation, discharge planning Possible discharge in 1 to 2 days if stable Plan of care reviewed with the patient and his nurse History Interval history: I have seen and examined the patient at the bedside Strict isolation precautions and PPE protocols observed Patient feels slightly better complains of generalized weakness Will evaluate for home oxygen, check resting and ambulatory room air O2 sats Patient is afebrile vital signs reviewed Hospitalist Physical - Constitutional Vitals: Temp Pulse Resp BP Pulse Ox 97.2 F L 66 16 150/97 94 02/28/20 05:15 02/28/20 05:15 02/28/20 05:15 02/28/20 05:15 02/28/20 05:15 General appearance: Present: mild distress, well-nourished - EENT Eyes: Present: PERRL, EOM intact - Neck Neck: Present: supple, normal ROM - Respiratory Respiratory effort: normal Respiratory: bilateral: diminished, negative: rales, rhonchi, wheezing - Cardiovascular Rhythm: regular Heart Sounds: Present: S1 & S2 - Extremities Extremities: no ischemia, No edema - Abdominal General gastrointestinal: soft, non-tender, non-distended, normal bowel sounds - Integumentary Integumentary: Present: clear, warm - Psychiatric Psychiatric: appropriate mood/affect, cooperative - Neurologic Neurologic: moves all extremities Results - Labs CBC & Chem 7: 02/20/20 04:57 02/28/20 04:59 Labs: Laboratory Last Values WBC 6.5 K/mm3 (4.5-11.0) 02/20/20 04:57 RBC 4.61 M/mm3 (3.65-5.03) 02/20/20 04:57 Hgb 10.1 gm/dl (11.8-15.2) L 02/20/20 04:57 Hct 32.3 % (35.5-45.6) L 02/20/20 04:57 MCV 70 fl (84-94) L 02/20/20 04:57 MCH 22 pg (28-32) L 02/20/20 04:57 MCHC 31 % (32-34) L 02/20/20 04:57 RDW 18.4 % (13.2-15.2) H 02/20/20 04:57 Plt Count 295 K/mm3 (140-440) 02/20/20 04:57 Add Manual Diff Complete 02/20/20 04:57 Total Counted 100 02/20/20 04:57 Seg Neutrophils % [employer]ricator 02/20/20 04:57 Seg Neuts % (Manual) 96.0 % (40.0-70.0) H 02/20/20 04:57 Band Neutrophils % 0 % 02/20/20 04:57 Lymphocytes % (Manual) 4.0 % (13.4-35.0) L 02/20/20 04:57 Reactive Lymphs % (Man) 0 % 02/20/20 04:57 Monocytes % (Manual) 0 % (0.0-7.3) 02/20/20 04:57 Eosinophils % (Manual) 0 % (0.0-4.3) 02/20/20 04:57 Basophils % (Manual) 0 % (0.0-1.8) 02/20/20 04:57 Metamyelocytes % 0 % 02/20/20 04:57 Myelocytes % 0 % 02/20/20 04:57 Promyelocytes % 0 % 02/20/20 04:57 Blast Cells % 0 % 02/20/20 04:57 Nucleated RBC % Not Reportable 02/20/20 04:57 Seg Neutrophils # Man 6.2 K/mm3 (1.8-7.7) 02/20/20 04:57 Band Neutrophils # 0.0 K/mm3 02/20/20 04:57 Lymphocytes # (Manual) 0.3 K/mm3 (1.2-5.4) L 02/20/20 04:57 Abs React Lymphs (Man) 0.0 K/mm3 02/20/20 04:57 Monocytes # (Manual) 0.0 K/mm3 (0.0-0.8) 02/20/20 04:57 Eosinophils # (Manual) 0.0 K/mm3 (0.0-0.4) 02/20/20 04:57 Basophils # (Manual) 0.0 K/mm3 (0.0-0.1) 02/20/20 04:57 Metamyelocytes # 0.0 K/mm3 02/20/20 04:57 Myelocytes # 0.0 K/mm3 02/20/20 04:57 Promyelocytes # 0.0 K/mm3 02/20/20 04:57 Blast Cells # 0.0 K/mm3 02/20/20 04:57 WBC Morphology Not Reportable 02/20/20 04:57 Hypersegmented Neuts Not Reportable 02/20/20 04:57 Hyposegmented Neuts Not Reportable 02/20/20 04:57 Hypogranular Neuts Not Reportable 02/20/20 04:57 Smudge Cells Not Reportable 02/20/20 04:57 Toxic Granulation Not Reportable 02/20/20 04:57 Toxic Vacuolation Not Reportable 02/20/20 04:57 Dohle Bodies Not Reportable 02/20/20 04:57 Pelger-Huet Anomaly Not Reportable 02/20/20 04:57 Reshma Rods Not Reportable 02/20/20 04:57 Platelet Estimate Consistent w auto 02/20/20 04:57 Clumped Platelets Not Reportable 02/20/20 04:57 Plt Clumps, EDTA Not Reportable 02/20/20 04:57 Large Platelets Not Reportable 02/20/20 04:57 Giant Platelets Not Reportable 02/20/20 04:57 Platelet Satelliting Not Reportable 02/20/20 04:57 Plt Morphology Comment Not Reportable 02/20/20 04:57 RBC Morphology Not Reportable 02/20/20 04:57 Dimorphic RBCs Not Reportable 02/20/20 04:57 Polychromasia Not Reportable 02/20/20 04:57 Hypochromasia 1+ 02/20/20 04:57 Poikilocytosis Few 02/20/20 04:57 Anisocytosis Not Reportable 02/20/20 04:57 Microcytosis Not Reportable 02/20/20 04:57 Macrocytosis Not Reportable 02/20/20 04:57 Spherocytes Few 02/20/20 04:57 Pappenheimer Bodies Not Reportable 02/20/20 04:57 Sickle Cells Not Reportable 02/20/20 04:57 Target Cells Not Reportable 02/20/20 04:57 Tear Drop Cells Not Reportable 02/20/20 04:57 Ovalocytes Not Reportable 02/20/20 04:57 Helmet Cells Not Reportable 02/20/20 04:57 Pfeiffer-Socastee Bodies Not Reportable 02/20/20 04:57 [employer] Rings Not Reportable 02/20/20 04:57 Morgan Cells Not Reportable 02/20/20 04:57 Bite Cells Not Reportable 02/20/20 04:57 Crenated Cell Not Reportable 02/20/20 04:57 Elliptocytes Few 02/20/20 04:57 Acanthocytes (Spur) Not Reportable 02/20/20 04:57 Rouleaux Not Reportable 02/20/20 04:57 Hemoglobin C Crystals Not Reportable 02/20/20 04:57 Schistocytes Few 02/20/20 04:57 Malaria parasites Not Reportable 02/20/20 04:57 Ricky Bodies Not Reportable 02/20/20 04:57 Hem Pathologist Commnt No 02/20/20 04:57 D-Dimer < 135.00 ng/mlDDU (0-234) 02/26/20 06:26 Sodium 138 mmol/L (137-145) 02/28/20 04:59 Potassium 4.9 mmol/L (3.6-5.0) 02/28/20 04:59 Chloride 101.5 mmol/L (98-107) 02/28/20 04:59 Carbon Dioxide 26 mmol/L (22-30) 02/28/20 04:59 Anion Gap 15 mmol/L 02/28/20 04:59 BUN 47 mg/dL (9-20) H 02/28/20 04:59 Creatinine 1.4 mg/dL (0.8-1.3) H 02/28/20 04:59 Estimated GFR > 60 ml/min 02/28/20 04:59 BUN/Creatinine Ratio 34 % 02/28/20 04:59 Glucose 116 mg/dL (75-100) H 02/28/20 04:59 POC Glucose 96 mg/dL (70-105) 02/25/20 13:29 Calcium 8.8 mg/dL (8.4-10.2) 02/28/20 04:59 Ferritin 42.9 ng/mL (30.0-300.0) 02/26/20 06:26 Total Bilirubin 0.20 mg/dL (0.1-1.2) 02/27/20 05:27 Direct Bilirubin < 0.2 mg/dL (0-0.2) 02/27/20 05:27 Indirect Bilirubin 0.0 mg/dL 02/27/20 05:27 AST 10 units/L (5-40) 02/27/20 05:27 ALT 10 units/L (7-56) 02/27/20 05:27 Alkaline Phosphatase 74 units/L (35-129) 02/27/20 05:27 Lactate Dehydrogenase 146 units/L (91-180) 02/26/20 06:26 C-Reactive Protein 0.30 mg/dL (0.00-1.30) 02/26/20 06:26 NT-Pro-B Natriuret Pep 1162 pg/mL (0-900) H 02/19/20 15:51 Total Protein 5.9 g/dL (6.3-8.2) L 02/27/20 05:27 Albumin 3.6 g/dL (3.9-5) L 02/27/20 05:27 Albumin/Globulin Ratio 1.6 % 02/27/20 05:27 Procalcitonin < 0.05 ng/mL (<0.15) 02/19/20 18:00 Coronavirus (PCR) Positive (Negative) A 02/20/20 10:27 Cheng/IV: Voiding Method Urinal IV Catheter Type [Right INT / Saline Lock Forearm] IV Catheter Type [Left Forearm INT / Saline Lock ] Active Medications - Current Medications Current Medications: Generic Name Dose Route Start Last Admin Trade Name Freq PRN Reason Stop Dose Admin Acetaminophen 650 mg 02/19/20 17:55 02/20/20 08:26 Tylenol PO 650 mg Q4H PRN Administration Pain MILD(1-3)/Fever >100.5/PEREZ Albuterol 2.5 mg 02/19/20 17:55 02/21/20 04:34 Proventil IH 2.5 mg Q4HRT PRN Administration Shortness Of Breath Alprazolam 1 mg 02/19/20 22:00 02/28/20 10:31 Xanax PO 1 mg BID ALEXANDRA Administration Arformoterol Tartrate 15 mcg 02/24/20 08:00 02/28/20 09:46 Brovana Nebu IH 15 mcg Q12HRT ALEXANDRA Administration Budesonide 0.5 mg 02/24/20 08:00 02/28/20 09:46 Pulmicort IH 0.5 mg Q12HRT ALEXANDRA Administration Cetirizine HCl 10 mg 02/26/20 17:30 02/28/20 10:31 Cetirizine PO 10 mg DAILY ALEXANDRA Administration Folic Acid 1 mg 02/20/20 10:00 02/28/20 10:31 Folvite PO 1 mg DAILY ALEXANDRA Administration Guaifenesin 20 ml 02/20/20 09:15 02/21/20 17:51 Guaifenesin Dm Syrup PO 20 ml Q4H PRN Administration Cough Heparin Sodium (Porcine) 5,000 unit 02/19/20 22:00 02/28/20 10:31 Heparin SUB-Q 5,000 unit Q12HR ALEXANDRA Administration REMDESIVIR 100 mg/ Sodium 250 mls @ 500 mls/hr 02/25/20 21:00 02/27/20 21:00 Chloride IV 02/28/20 21:29 500 mls/hr Q24HR@2100 ALEXANDRA Administration Sodium Chloride 1,000 mls @ 100 mls/hr 02/27/20 10:00 02/27/20 10:52 Nacl 0.9% 1000 Ml IV 100 mls/hr DIRECT ALEXANDRA Administration Lidocaine HCl 15 ml 02/21/20 14:00 02/28/20 14:09 Magic Mouthwash PO 15 ml TID ALEXANDRA Administration Methadone HCl 20 mg 02/20/20 10:00 02/28/20 17:31 Dolophine PO 20 mg Q8H ALEXANDRA Administration Methylprednisolone Sodium Succinate 40 mg 02/19/20 22:00 02/28/20 14:09 Solu-Medrol IV 40 mg Q8HR ALEXANDRA Administration Nifedipine 90 mg 02/20/20 10:00 02/28/20 10:31 Procardia Xl PO 90 mg QDAY ALEXANDRA Administration Ondansetron HCl 4 mg 02/19/20 17:55 Zofran IV Q8H PRN Nausea And Vomiting Oxycodone/Acetaminophen 2 tab 02/19/20 17:58 02/24/20 09:56 Percocet 5/325 PO 2 tab Q6H PRN Administration Pain, Moderate (4-6) Paroxetine HCl 10 mg 02/20/20 10:00 02/28/20 10:42 Paxil PO 10 mg DAILY ALEXANDRA Administration Sodium Chloride 10 ml 02/19/20 22:00 02/28/20 10:32 Sodium Chloride Flush Syringe 10 Ml IV Not Given BID ALEXANDRA Sodium Chloride 10 ml 02/19/20 17:55 02/22/20 05:38 Sodium Chloride Flush Syringe 10 Ml IV 10 ml PRN PRN Administration LINE FLUSH Sodium Chloride 50 ml 02/24/20 13:00 02/27/20 21:35 Nacl 0.9% IV 02/28/20 21:01 50 ml Q24HR@2100 ALEXANDRA Administration Trazodone HCl 100 mg 02/19/20 22:00 02/27/20 22:04 Desyrel PO 100 mg QHS ALEXANDRA Administration Nutrition/Malnutrition Assess - Dietary Evaluation Nutrition/Malnutrition Findings: Nutrition Notes Start: 02/26/20 11:42 Freq: Status: Active Protocol: Document 02/26/20 11:42 AB (Rec: 02/26/20 12:50 AB [id number]) Co-Sign 02/26/20 11:42 MK Nutrition Notes Need for Assessment generated from: LOS Initial or Follow up Brief Note Current Diagnosis COPD Other Pertinent Diagnosis acute respiratory failure, colitis, anemia, pneumonia, COVID (+) Current Diet Regular Subjective/Other Information Pt is alert and responsive. Pt is consuming 100% of meals. No further questions or concerns from pt. Nutrition Intervention Revisit per MD consult or patient Sign Off request:
[2020-02-28] MEDS: REMDESIVIR 100 MG in SODIUM CHLORIDE 0.9% 250ML 250 ML IV SCH (21:29)
[2020-02-28] MEDS: SODIUM CHLORIDE 0.9% 50 ML IVPB IV SCH (21:30)
[2020-02-28] MEDS: traZODone 100 MG TAB PO SCH (21:31)
[2020-02-29] MEDS: METHADONE 5 MG TAB PO SCH ×2 (02:34→11:20)
[2020-02-29] MEDS: methylPREDNISolone Sod Succinate 40 MG/1 ML INJ IV SCH ×2 (06:00→14:10)
[2020-02-29] MEDS: ACETAMINOPHEN 325 MG TAB PO PRN (06:22)
[2020-02-29] MEDS: ARFORMOTEROL 15 MCG/2 ML NEBU IH SCH (09:45)
[2020-02-29] MEDS: BUDESONIDE 0.5 MG/2 ML NEBU IH SCH (09:45)
[2020-02-29] MEDS: ALPRAZolam 1 MG TAB PO SCH (11:21)
[2020-02-29] MEDS: CETIRIZINE 10 MG TAB PO SCH (11:21)
[2020-02-29] MEDS: FOLIC ACID 1 MG TAB PO SCH (11:22)
[2020-02-29] MEDS: HEPARIN 5,000 UNIT/1 ML VIAL SUB-Q SCH (11:23)
[2020-02-29] MEDS: NIFEdipine XL 90 MG TAB PO SCH (11:23)
[2020-02-29] MEDS: MAGIC MOUTHWASH 30ML PO SCH ×2 (11:25→14:10)
[2020-02-29] MEDS: PARoxetine 10 MG TAB PO SCH (11:58)
--- NOTE | 2020-02-29 12:40 | Discharge Summary ---
Providers - Providers Date of Admission: 02/19/20 17:55 Date of discharge: 02/29/20 Attending physician: RUBA BANDA 02/23/20 11:21 Consult to Physician [CONS] Routine Comment: Consulting Provider: HEIDY KILGORE Physician Instructions: Reason For Exam: Covid pneumonia Primary care physician: [employer] MANAGER Hospitalization Condition: Stable Disposition: DC-30 STILL A PATIENT Time spent for discharge: 32 min Exam - Constitutional Vitals: Temp Pulse Resp BP Pulse Ox 97.3 F L 77 18 126/88 97 02/29/20 04:52 02/29/20 04:52 02/29/20 08:35 02/29/20 04:52 02/29/20 04:52 Plan Additional Instructions: Strictly follow self quarantine and other Covid protocols instructed by the discharge nurse. If you have worsening symptoms contact MD or go to emergency room. Smoking cessation advised Follow up with: PRIMARY CARE, [Primary Care Provider] - 7 Days Prescriptions: guaiFENesin DM [Guaifenesin Dm Syrup] 20 ml PO Q4H PRN 14 Days oral.liqd PRN Reason: Cough Nystas/Diphen/Xyl Visc/Mylanta [Magic Mouthwash] 15 ml PO TID 14 Days oral.liqd Prednisone [predniSONE 10 mg (6-Day Pack, 21 Tabs)] 10 mg PO .TAPER #1 tab.ds.pk
[2020-02-29 16:39] VITALS: BP 139/93
== END 2020-02-29 18:38 | disposition home or self-care (01) | DRG 177 ==
LOC: ED 12:49 → 3A 17:55
PROVIDERS: ADMIT Internal Medicine; ATTEND Internal Medicine
PROC: XW033E5 Introduction of Remdesivir Anti-infective into Peripheral Vein, Percutaneous Approach, New Technology Group 5 (ICD-10-PCS; principal; 2020-02-24)
DX: U07.1 COVID-19 (principal); J12.89 Other viral pneumonia; J96.01 Acute respiratory failure with hypoxia; N17.0 Acute kidney failure with tubular necrosis; J44.0 Chronic obstructive pulmonary disease with (acute) lower respiratory infection; J44.1 Chronic obstructive pulmonary disease with (acute) exacerbation; F17.213 Nicotine dependence, cigarettes, with withdrawal; I10 Essential (primary) hypertension; M06.9 Rheumatoid arthritis, unspecified; Z86.718 Personal history of other venous thrombosis and embolism; M19.90 Unspecified osteoarthritis, unspecified site; Z82.49 Family history of ischemic heart disease and other diseases of the circulatory system; E87.5 Hyperkalemia; E86.0 Dehydration
CPT/HCPCS: 36415; 71046; 71250; 80048; 80076; 82565; 82728; 82947; 82962; 83615; 83880; 84132; 84145; 85007; 85025; 85027; 85379; 86140; 93005; 94640; 94644; 94760; 96365; 96375; G0378; J0456; J0696; J1644; J1940; J2920; J2930; J3475; J7030; J7050; U0003